=== PATIENT | female | born 1990 | race Caucasian/White ===

== ENCOUNTER 2022-12-18 18:35 | Emergency (ER) | payer MEDICAID ==
[~2022-12-18] VITALS: Ht 121.9 cm; Wt 57.0 kg
[2022-12-18 19:57] LABS: BASOPHILS % 0.5 % (0.0-2.0); EOSINOPHILS % 3.8 % (0.0-5.0); HEMATOCRIT. 35.9 % (36.0-48.0); HEMOGLOBIN. 12.2 g/dL (12.0-16.0); LYMPHOCYTES % 21.4 % (20.0-50.0); MEAN CORPUSCULAR HEMOGLOBIN 29.6 pg (28.0-32.0); MEAN CORPUSCULAR VOLUME 86.9 fL (81.0-99.0); MEAN PLATELET VOLUME 7.7 fl (7.4-10.4); MONOCYTES % 6.2 % (2.0-8.0); NEUTROPHILS % 68.1 % (40.0-76.0); PLATELET 335 x1000/uL (130-400); RED BLOOD CELL COUNT 4.13 mill/uL (4.2-5.4); RED CELL DISTRIBUTION WIDTH 14.6 % (11.6-14.6)
[2022-12-18 20:05] LABS: CHLORIDE 102 mEq/L (98-107)
[2022-12-18] MEDS ORDERED: SODIUM CHLORIDE 0.9% 1,000 ML IV ONE (22:15)
[2022-12-18] MEDS ORDERED: POTASSIUM CHLORIDE 20MEQ TABLET SR PO ONE (22:15)
[2022-12-18 22:37] LABS: CLARITY URINE CLEAR (CLEAR); COLOR URINE YELLOW (YELLOW); KETONES URINE NEGATIVE (NEGATIVE); LEUKOCYTE ESTERASE URINE NEGATIVE (NEGATIVE); NITRITE URINE NEGATIVE (NEGATIVE); OCCULT BLOOD URINE NEGATIVE (NEGATIVE); PH URINE 6.5 (4.5-8.0); PROTEIN URINE NEGATIVE (NEGATIVE); SPECIFIC GRAVITY URINE 1.016 (1.005-1.030)
[2022-12-19] VITALS: BP 116/77
== END 2022-12-19 19:19 | disposition home or self-care (01) ==
LOC: ER 18:35
DX: R07.89 Other chest pain (principal); R05.9 Cough, unspecified; E11.9 Type 2 diabetes mellitus without complications
CPT/HCPCS: 36415; 71045; 80053; 81003; 82962; 84484; 85025; 93005; 99285; J7030; Z7610

== ENCOUNTER 2022-12-25 06:00 | Inpatient (IN) | payer MEDICAID ==
[~2022-12-25] VITALS: Ht 149.9 cm; Wt 51.7 kg
[2022-12-25] MEDS ORDERED: SODIUM CHLORIDE 0.9% 1000ML BAG (SEPSIS BOLUS) IV ONE (06:15)
[2022-12-25] MEDS ORDERED: ADENOSINE 3 MG/ML 2ML VIAL IV ONE ×2 (06:15)
[2022-12-25] MEDS ORDERED: ACETAMINOPHEN 325MG TABLET PO ONE (06:30)
[2022-12-25 06:47] LABS: HEMATOCRIT. 38.6 % (36.0-48.0); HEMOGLOBIN. 13.1 g/dL (12.0-16.0); MEAN CORPUSCULAR HEMOGLOBIN 29.5 pg (28.0-32.0); MEAN CORPUSCULAR VOLUME 87.2 fL (81.0-99.0); MEAN PLATELET VOLUME 7.8 fl (7.4-10.4); PLATELET 327 x1000/uL (130-400); RED BLOOD CELL COUNT 4.43 mill/uL (4.2-5.4); RED CELL DISTRIBUTION WIDTH 14.6 % (11.6-14.6)
[2022-12-25 06:51] LABS: CHLORIDE 106 mEq/L (98-107)
[2022-12-25 07:05] LABS: PROTHROMBIN TIME 11.2 sec (9.6-11.0)
[2022-12-25] MEDS ORDERED: VANCOMYCIN 1G PREMIX 200 ML IV ONE (07:30)
[2022-12-25] MEDS ORDERED: KETOROLAC 30MG/ML VIAL IV ONE (07:30)
[2022-12-25] MEDS ORDERED: PIPERACILLIN/TAZ 3.375G PREMIX 50 ML IV ONE (07:30)
[2022-12-25 07:57] LABS: PLATELET ESTIMATE NORMAL
[2022-12-25 08:00] VITALS: BP 122/75
[2022-12-25 12:30] VITALS: BP 112/69
[2022-12-25] MEDS ORDERED: ONDANSETRON HCL 4MG/2ML INJ IV PRN (13:00)
[2022-12-25] MEDS: ACETAMINOPHEN 325MG TABLET PO PRN (13:18)
[2022-12-25] MEDS: LEVOFLOXACIN 500MG PREMIX 100 ML IV SCH (14:00)
[2022-12-25 16:00] VITALS: BP 106/72
[2022-12-25] MEDS ORDERED: CEFTRIAXONE 1GM PREMIX 50 ML IV SCH (17:45)
[2022-12-25] MEDS: MONTELUKAST SODIUM 10MG TABLET PO SCH (18:00)
[2022-12-25] MEDS: KETOROLAC 30MG/ML VIAL IV PRN (19:44)
[2022-12-25 20:00] VITALS: BP 110/75
[2022-12-25] MEDS ORDERED: CEFTRIAXONE 1,000 MG in DEXTROSE 5% WATER 50 ML IV SCH (20:00)
[2022-12-25] MEDS ORDERED: DEXTROSE 50% WATER 50ML SYRINGE IV PRN (21:15)
[2022-12-25 22:00] VITALS: BP 110/75
[2022-12-25] MEDS: LEVETIRACETAM 500MG TABLET PO SCH (22:24)
[2022-12-25] MEDS: TOPIRAMATE 100MG TABLET PO SCH (22:24)
[2022-12-25] MEDS: FAMOTIDINE 20MG TABLET PO SCH (22:24)
[2022-12-25] MEDS: DESMOPRESSIN ACETATE 0.1MG TABLET PO SCH (22:25)
[2022-12-25] MEDS: SILVER SULFADIAZINE 1% CREAM 25GM TOP SCH (22:25)
[2022-12-25 23:00] LABS: BASOPHILS % 0.5 % (0.0-2.0); EOSINOPHILS % 1.3 % (0.0-5.0); HEMATOCRIT. 35.8 % (36.0-48.0); HEMOGLOBIN. 11.9 g/dL (12.0-16.0); MEAN CORPUSCULAR HEMOGLOBIN 29.1 pg (28.0-32.0); MEAN CORPUSCULAR VOLUME 87.4 fL (81.0-99.0); MEAN PLATELET VOLUME 7.6 fl (7.4-10.4); MONOCYTES % 10.7 % (2.0-8.0); NEUTROPHILS % 70.5 % (40.0-76.0); PLATELET 314 x1000/uL (130-400); RED BLOOD CELL COUNT 4.09 mill/uL (4.2-5.4); RED CELL DISTRIBUTION WIDTH 14.8 % (11.6-14.6)
[2022-12-26] VITALS (7 sets, daily range): BP systolic 93–111; BP diastolic 57–76
[2022-12-26 06:21] LABS: BASOPHILS % 0.5 % (0.0-2.0); EOSINOPHILS % 1.9 % (0.0-5.0); HEMATOCRIT. 32.5 % (36.0-48.0); HEMOGLOBIN. 11.1 g/dL (12.0-16.0); LYMPHOCYTES % 19.6 % (20.0-50.0); MEAN CORPUSCULAR HEMOGLOBIN 30.4 pg (28.0-32.0); MEAN PLATELET VOLUME 7.7 fl (7.4-10.4); MONOCYTES % 10.8 % (2.0-8.0); NEUTROPHILS % 67.2 % (40.0-76.0); PLATELET 294 x1000/uL (130-400); RED BLOOD CELL COUNT 3.65 mill/uL (4.2-5.4); RED CELL DISTRIBUTION WIDTH 14.6 % (11.6-14.6)
[2022-12-26 06:32] LABS: CHLORIDE 119 mEq/L (98-107)
[2022-12-26] MEDS ORDERED: BLOOD SUGAR DIAGNOSTIC STRIP TEST SCH (06:40)
[2022-12-26] MEDS ORDERED: INSULIN LISPRO 100 UNITS/ML SUBCUT SCH ×2 (07:10)
[2022-12-26] MEDS: POLYETHYLENE GLYCOL 3350 (17GM) 1 DOSE PACK PO SCH (09:00)
[2022-12-26] MEDS ORDERED: SILVER SULFADIAZINE 1% CREAM 50GM TOP SCH (09:00)
[2022-12-26] MEDS ORDERED: POTASSIUM CHLORIDE 20MEQ TABLET SR PO NR (09:30)
[2022-12-26] MEDS: DESMOPRESSIN ACETATE 0.1MG TABLET PO SCH ×2 (11:03→18:43)
[2022-12-26] MEDS: FERROUS SULFATE 325MG TABLET PO SCH (11:03)
[2022-12-26] MEDS: LEVETIRACETAM 500MG TABLET PO SCH ×2 (11:04→21:37)
[2022-12-26] MEDS: TOPIRAMATE 25MG TABLET PO SCH (11:04)
[2022-12-26] MEDS: ACETAMINOPHEN 325MG TABLET PO PRN ×2 (11:04→18:43)
[2022-12-26] MEDS: SILVER SULFADIAZINE 1% CREAM 25GM TOP SCH ×2 (11:07→21:38)
[2022-12-26] MEDS: LEVOFLOXACIN 500MG PREMIX 100 ML IV SCH (15:52)
[2022-12-26] MEDS: MONTELUKAST SODIUM 10MG TABLET PO SCH (18:43)
[2022-12-26] MEDS: KETOROLAC 30MG/ML VIAL IV PRN (18:44)
[2022-12-26] MEDS: TOPIRAMATE 100MG TABLET PO SCH (21:37)
[2022-12-26] MEDS: FAMOTIDINE 20MG TABLET PO SCH (21:37)
[2022-12-27] VITALS (7 sets, daily range): BP systolic 83–111; BP diastolic 54–71
[2022-12-27 06:34] LABS: CLARITY URINE CLEAR (CLEAR); COLOR URINE YELLOW (YELLOW); KETONES URINE NEGATIVE (NEGATIVE); LEUKOCYTE ESTERASE URINE TRACE (NEGATIVE); NITRITE URINE POSITIVE (NEGATIVE); OCCULT BLOOD URINE 2+ (NEGATIVE); PH URINE 7.5 (4.5-8.0); PROTEIN URINE NEGATIVE (NEGATIVE); SPECIFIC GRAVITY URINE 1.013 (1.005-1.030)
[2022-12-27] MEDS: POLYETHYLENE GLYCOL 3350 (17GM) 1 DOSE PACK PO SCH (09:00)
[2022-12-27] MEDS: ACETAMINOPHEN 325MG TABLET PO PRN ×2 (09:37→19:11)
[2022-12-27] MEDS: LEVETIRACETAM 500MG TABLET PO SCH (09:37)
[2022-12-27] MEDS: FERROUS SULFATE 325MG TABLET PO SCH (09:39)
[2022-12-27] MEDS: DESMOPRESSIN ACETATE 0.1MG TABLET PO SCH ×2 (09:39→19:11)
[2022-12-27] MEDS: TOPIRAMATE 25MG TABLET PO SCH (09:40)
[2022-12-27] MEDS: SILVER SULFADIAZINE 1% CREAM 25GM TOP SCH (09:41)
[2022-12-27] MEDS ORDERED: LEVO-65 MT (12:10)
[2022-12-27] MEDS ORDERED: LEVOFLOXACIN 500MG TABLET PO SCH (14:00)
[2022-12-27] MEDS: KETOROLAC 30MG/ML VIAL IV PRN (14:08)
[2022-12-27] MEDS: LEVOFLOXACIN 500MG PREMIX 100 ML IV SCH (14:09)
[2022-12-27] MEDS: MONTELUKAST SODIUM 10MG TABLET PO SCH (19:11)
== END 2022-12-27 21:15 | disposition home or self-care (01) | DRG 720 ==
LOC: ER 06:00 → EDBEDREQ 10:49 → 7EST 10:51
PROVIDERS: ADMIT Internal Medicine; ATTEND Internal Medicine
PROC: 0JBR0ZZ Excision of Left Foot Subcutaneous Tissue and Fascia, Open Approach (ICD-10-PCS; 2022-12-26)
PROC: 0JBR0ZZ Excision of Left Foot Subcutaneous Tissue and Fascia, Open Approach (ICD-10-PCS; 2022-12-26)
PROC: 0JBL0ZZ Excision of Right Upper Leg Subcutaneous Tissue and Fascia, Open Approach (ICD-10-PCS; principal; 2022-12-27)
DX: A41.9 Sepsis, unspecified organism (principal); E46 Unspecified protein-calorie malnutrition; E87.1 Hypo-osmolality and hyponatremia; L89.899 Pressure ulcer of other site, unspecified stage; N12 Tubulo-interstitial nephritis, not specified as acute or chronic; S71.111A Laceration without foreign body, right thigh, initial encounter; G62.9 Polyneuropathy, unspecified; E11.9 Type 2 diabetes mellitus without complications; L98.492 Non-pressure chronic ulcer of skin of other sites with fat layer exposed; Q05.9 Spina bifida, unspecified; Z68.23 Body mass index [BMI] 23.0-23.9, adult; Z74.01 Bed confinement status; Z79.4 Long term (current) use of insulin; Z88.1 Allergy status to other antibiotic agents; X58.XXXA Exposure to other specified factors, initial encounter; Y93.89 Activity, other specified; Y92.89 Other specified places as the place of occurrence of the external cause; Y99.8 Other external cause status
CPT/HCPCS: 36415; 71045; 80048; 80053; 81003; 82040; 82962; 83036; 83605; 83880; 84134; 84145; 84484; 85025; 93005; 99285; J0153; J0696; J1885; J1956; J2405; J2543; J3370; J7030; J7060

== ENCOUNTER 2023-10-08 09:35 | Inpatient (IN) | payer MEDICAID ==
[~2023-10-08] VITALS: Ht 121.9 cm; Wt 47.6 kg
[2023-10-08] MEDS ORDERED: KETOROLAC 30MG/ML VIAL IV ONE (10:00)
[2023-10-08 10:32] LABS: BASOPHILS % 0.6 % (0.0-2.0); EOSINOPHILS % 3.5 % (0.0-5.0); HEMATOCRIT. 36.6 % (36.0-48.0); HEMOGLOBIN. 12.3 g/dL (12.0-16.0); LYMPHOCYTES % 23.5 % (20.0-50.0); MEAN CORPUSCULAR HEMOGLOBIN 28.1 pg (28.0-32.0); MEAN CORPUSCULAR HGB CONC 33.6 g/dL (31.0-37.0); MEAN CORPUSCULAR VOLUME 83.5 fL (81.0-99.0); MEAN PLATELET VOLUME 8.1 fl (7.4-10.4); MONOCYTES % 6.6 % (2.0-8.0); NEUTROPHILS % 65.8 % (40.0-76.0); PLATELET 318 x1000/uL (130-400); RED BLOOD CELL COUNT 4.38 mill/uL (4.2-5.4); RED CELL DISTRIBUTION WIDTH 16.1 % (11.6-14.6)
[2023-10-08 10:40] LABS: INR 0.9; PROTHROMBIN TIME 10.4 sec (9.6-11.0)
[2023-10-08 10:56] LABS: ALANINE AMINOTRANSFERASE 20 IU/L (10-49); ALBUMIN 4.1 g/dL (3.2-4.8); ASPARTATE AMINOTRANSFERASE 16 IU/L (<34); BILIRUBIN TOTAL 0.2 mg/dL (0.1-1.0); CALCIUM 8.7 mg/dL (8.7-10.4); CARBON DIOXIDE 20 mEq/L (21-32); CHLORIDE 111 mEq/L (98-107); CREATININE 0.2 mg/dL (0.6-1.0); GLUCOSE 105 mg/dL (70-105); POTASSIUM 3.5 mEq/L (3.5-5.1); PROTEIN TOTAL 7.5 g/dL (6.0-8.3); SODIUM 138 mEq/L (136-145); UREA NITROGEN BLOOD 11 mg/dL (9-23)
[2023-10-08 11:53] LABS: CLARITY URINE TURBID (CLEAR); COLOR URINE YELLOW (YELLOW); GLUCOSE URINE NEGATIVE (NEGATIVE); KETONES URINE NEGATIVE (NEGATIVE); LEUKOCYTE ESTERASE URINE 3+ (NEGATIVE); NITRITE URINE NEGATIVE (NEGATIVE); OCCULT BLOOD URINE 1+ (NEGATIVE); PH URINE 8.5 (4.5-8.0); PROTEIN URINE 1+ (NEGATIVE); SPECIFIC GRAVITY URINE 1.017 (1.005-1.030)
[2023-10-08] MEDS: KETOROLAC 30MG/ML VIAL IV NR (12:15)
[2023-10-08 12:25] LABS: BACTERIA URINE 1+; RBC URINE 0-2 /hpf (0-2); SQUAMOUS EPITHELIAL CELL URINE 3+ /lpf (RARE/1+); WBC URINE TNTC /hpf (0-2); YEAST URINE NONE SEEN
[2023-10-08 12:26] LABS: TRIPLE PHOSPHATE CRYSTAL URINE 1+ /lpf
[2023-10-08] MEDS: LEVOFLOXACIN 750MG PREMIX 150 ML IV ONE (12:26)
[2023-10-08] MEDS ORDERED: IPRATROPIUM/ALBUTEROL 0.5-3(2.5)MG/3ML NEB HHN PRN (15:15)
[2023-10-08] MEDS ORDERED: CLONIDINE 0.1MG TABLET PO PRN (15:15)
[2023-10-08] MEDS ORDERED: GUAIFENESIN 200MG/10ML SUGAR FREE UDC PO PRN (15:15)
[2023-10-08] MEDS ORDERED: NA PHOS,M-B/NA PHOS,DI-BA ENEMA 118ML PR PRN (15:15)
[2023-10-08] MEDS ORDERED: MAGNESIUM/ALUMINUM HYDROXIDE/SIMETHICONE 30ML UDC PO PRN (15:15)
[2023-10-08] MEDS ORDERED: ONDANSETRON HCL 4MG/2ML INJ IV PRN (15:15)
[2023-10-08] MEDS ORDERED: ACETAMINOPHEN 325MG TABLET PO PRN ×2 (15:15)
[2023-10-08] MEDS ORDERED: LEVOFLOXACIN 750MG PREMIX 150 ML IV SCH (15:30)
[2023-10-08 15:48] LABS: IRON 61 ug/dL (50-170); PHOSPHORUS 1.6 mg/dL (2.5-4.9); TOTAL IRON BINDING CAPACITY 215 ug/dl (250-425)
[2023-10-08] MEDS ORDERED: SILVER NITRATE APPLICATOR STICK TOP NR (16:00)
[2023-10-08 16:42] LABS: FERRITIN 39 ng/mL (10-291); VITAMIN B12 SERUM 473 pg/mL (211-911)
[2023-10-08 16:48] LABS: FOLIC ACID (FOLATE) SERUM > 48.00 ng/mL (>5.38)
[2023-10-08] MEDS ORDERED: KEPP250 MT (17:52)
[2023-10-08] MEDS ORDERED: POTASSIUM PHOSPHATE 30 MMOL in DEXT 5% WATER 500 ML IV NR (18:15)
[2023-10-08] MEDS: ENOXAPARIN 40MG/0.4ML SYR SUBCUT SCH (18:23)
[2023-10-08 19:30] VITALS: BP 97/60; PULSE 79; RESP 18; TEMP 97.9
[2023-10-08 20:00] VITALS: BP 101/67; PULSE 85; RESP 18; TEMP 98.1
[2023-10-08 20:14] LABS: HCG SCREEN NEGATIVE
[2023-10-08] MEDS: FAMOTIDINE 20MG TABLET PO SCH (22:01)
[2023-10-08] MEDS: LEVETIRACETAM 500MG/5ML CUP PO SCH (22:01)
[2023-10-08] MEDS: TOPIRAMATE 100MG TABLET PO SCH (22:01)
[2023-10-08] MEDS: DESMOPRESSIN ACETATE 0.1MG TABLET PO SCH (22:02)
[2023-10-08 22:41] LABS: CREATINE KINASE 28 IU/L (34-145); CREATINE KINASE MB FRACTION < 0.5 ng/mL (0.5-3.6)
[2023-10-08 22:42] LABS: TROPONIN I HIGH SENSITIVITY < 4 ng/L (3.0-34)
[2023-10-09] VITALS: BP 98/59; PULSE 65; RESP 18; TEMP 98.4
[2023-10-09 04:00] VITALS: BP 93/62; PULSE 84; RESP 18; TEMP 98.1
[2023-10-09] MEDS: SODIUM CHLORIDE 0.9% 1,000 ML IV SCH (04:43)
[2023-10-09 07:38] LABS: BASOPHILS % 0.5 % (0.0-2.0); EOSINOPHILS % 2.8 % (0.0-5.0); HEMATOCRIT. 35.4 % (36.0-48.0); HEMOGLOBIN. 11.8 g/dL (12.0-16.0); LYMPHOCYTES % 20.1 % (20.0-50.0); MEAN CORPUSCULAR HEMOGLOBIN 28.1 pg (28.0-32.0); MEAN CORPUSCULAR HGB CONC 33.4 g/dL (31.0-37.0); MEAN CORPUSCULAR VOLUME 84.1 fL (81.0-99.0); MEAN PLATELET VOLUME 8.2 fl (7.4-10.4); MONOCYTES % 6.2 % (2.0-8.0); NEUTROPHILS % 70.4 % (40.0-76.0); PLATELET 265 x1000/uL (130-400); RED CELL DISTRIBUTION WIDTH 16.2 % (11.6-14.6); WHITE BLOOD COUNT 7.2 x1000/uL (4.5-11.0)
[2023-10-09 07:58] LABS: CREATINE KINASE 20 IU/L (34-145); CREATINE KINASE MB FRACTION < 0.5 ng/mL (0.5-3.6)
[2023-10-09 08:00] VITALS: BP 95/63; PULSE 85; RESP 16; TEMP 98.4
[2023-10-09 08:01] LABS: ALANINE AMINOTRANSFERASE 14 IU/L (10-49); ALBUMIN 3.8 g/dL (3.2-4.8); ASPARTATE AMINOTRANSFERASE 14 IU/L (<34); BILIRUBIN TOTAL 0.2 mg/dL (0.1-1.0); CALCIUM 8.3 mg/dL (8.7-10.4); CARBON DIOXIDE 18 mEq/L (21-32); CHLORIDE 113 mEq/L (98-107); CHOLESTEROL 150 mg/dL (<200); CREATININE 0.2 mg/dL (0.6-1.0); GLUCOSE 102 mg/dL (70-105); HDL CHOLESTEROL 33 mg/dL (>65); LDL CHOLESTEROL 91 mg/dL (5-100); POTASSIUM 3.3 mEq/L (3.5-5.1); PROTEIN TOTAL 6.9 g/dL (6.0-8.3); SODIUM 139 mEq/L (136-145); T4 FREE 0.96 ng/dL (0.89-1.76); TRIGLYCERIDE 186 mg/dL (0-150); UREA NITROGEN BLOOD 12 mg/dL (9-23)
[2023-10-09 08:17] LABS: TROPONIN I HIGH SENSITIVITY < 4 ng/L (3.0-34)
[2023-10-09] MEDS: TOPIRAMATE 25MG TABLET PO SCH (09:31)
[2023-10-09 12:00] VITALS: BP 92/57; PULSE 83; RESP 17; TEMP 100.2
[2023-10-09] MEDS: GENTAMICIN 80MG PREMIX 100 ML IV NR (14:00)
[2023-10-09 16:00] VITALS: BP 103/61; PULSE 78; RESP 18; TEMP 98.3
[2023-10-09] MEDS: DOCUSATE SODIUM 100MG CAPSULE PO SCH (17:00)
[2023-10-09 20:00] VITALS: BP 103/62; PULSE 84; RESP 18; TEMP 98.1
[2023-10-09] MEDS: SODIUM CHLORIDE 0.9% IV SCH (22:00)
[2023-10-09] MEDS: GENTAMICIN IV SCH (22:00)
[2023-10-10] VITALS: BP 99/60; PULSE 80; RESP 18; TEMP 98.6
[2023-10-10 03:39] LABS: HEMATOCRIT 35.2 % (36.0-48.0); HEMOGLOBIN 11.6 g/dL (12.0-16.0); MEAN CORPUSCULAR HGB CONC 33.1 g/dL (31.0-37.0); MEAN CORPUSCULAR VOLUME 84.7 fL (81.0-99.0); PLATELET 317 x1000/uL (130-400); RED BLOOD CELL COUNT 4.15 mill/uL (4.2-5.4); RED CELL DISTRIBUTION WIDTH 16.5 % (11.6-14.6); WHITE BLOOD COUNT 6.9 x1000/uL (4.5-11.0)
[2023-10-10 03:40] LABS: CALCIUM 8.2 mg/dL (8.7-10.4); CARBON DIOXIDE 18 mEq/L (21-32); CHLORIDE 112 mEq/L (98-107); GLUCOSE 107 mg/dL (70-105); PHOSPHORUS 3.4 mg/dL (2.5-4.9); POTASSIUM 3.7 mEq/L (3.5-5.1); SODIUM 138 mEq/L (136-145); UREA NITROGEN BLOOD 9 mg/dL (9-23)
[2023-10-10 04:00] VITALS: BP 108/63; PULSE 85; RESP 18; TEMP 97.9
[2023-10-10 04:06] LABS: CREATININE 0.3 mg/dL (0.6-1.0)
[2023-10-10 08:00] VITALS: BP 89/55; PULSE 82; RESP 18; TEMP 98.4
[2023-10-10 12:00] VITALS: BP 88/58; PULSE 88; RESP 18; TEMP 98.2
[2023-10-10 16:00] VITALS: BP 89/62; PULSE 95; RESP 18; TEMP 98.5
[2023-10-10 20:00] VITALS: BP 100/62; PULSE 89; RESP 20; TEMP 97.7
[2023-10-10] MEDS: ATORVASTATIN CALCIUM 40MG TABLET PO SCH (21:42)
[2023-10-11] VITALS: BP 90/56; PULSE 75; RESP 20; TEMP 97.7
[2023-10-11] MEDS: VALPROIC ACID 250MG CAPSULE PO SCH (01:25)
[2023-10-11 04:00] VITALS: BP 94/61; PULSE 66; RESP 20; TEMP 96.7
[2023-10-11 07:52] LABS: HEMATOCRIT 32.2 % (36.0-48.0); HEMOGLOBIN 10.7 g/dL (12.0-16.0); MEAN CORPUSCULAR HGB CONC 33.1 g/dL (31.0-37.0); MEAN CORPUSCULAR VOLUME 84.7 fL (81.0-99.0); PLATELET 282 x1000/uL (130-400); RED BLOOD CELL COUNT 3.81 mill/uL (4.2-5.4); RED CELL DISTRIBUTION WIDTH 16.1 % (11.6-14.6); WHITE BLOOD COUNT 6.1 x1000/uL (4.5-11.0)
[2023-10-11 08:00] VITALS: BP 93/60; PULSE 77; RESP 18; TEMP 98
[2023-10-11 08:51] LABS: ALANINE AMINOTRANSFERASE 17 IU/L (10-49); ALBUMIN 3.8 g/dL (3.2-4.8); ASPARTATE AMINOTRANSFERASE 19 IU/L (<34); BILIRUBIN TOTAL 0.3 mg/dL (0.1-1.0); CALCIUM 8.3 mg/dL (8.7-10.4); CARBON DIOXIDE 16 mEq/L (21-32); CHLORIDE 113 mEq/L (98-107); GLUCOSE 91 mg/dL (70-105); PHOSPHORUS 2.4 mg/dL (2.5-4.9); POTASSIUM 3.5 mEq/L (3.5-5.1); PROTEIN TOTAL 6.8 g/dL (6.0-8.3); SODIUM 136 mEq/L (136-145); UREA NITROGEN BLOOD 9 mg/dL (9-23)
[2023-10-11 08:55] LABS: CREATININE 0.2 mg/dL (0.6-1.0)
[2023-10-11 12:00] VITALS: BP 98/53; PULSE 63; RESP 17; TEMP 98.7
[2023-10-11] MEDS: LACTULOSE 20G/30ML UDC PO SCH (14:02)
[2023-10-11] MEDS: POTASSIUM PHOSPHATE 20 MMOL in DEXT 5% WATER 243.3333 ML IV SCH (14:05)
[2023-10-11 14:22] LABS: POTASSIUM URINE RANDOM 13.3 mEq/L
[2023-10-11 16:00] VITALS: BP 135/80; PULSE 76; RESP 19; TEMP 97.1
[2023-10-11] MEDS: DOCUSATE SODIUM 100MG CAPSULE PO PRN (16:45)
[2023-10-11 20:00] VITALS: BP 99/59; PULSE 91; RESP 20; TEMP 97.7
[2023-10-12] VITALS: BP 90/56; PULSE 82; RESP 20; TEMP 96.5
[2023-10-12 04:00] VITALS: BP 90/51; PULSE 84; RESP 20; TEMP 96.5
[2023-10-12 08:00] VITALS: BP 95/52; PULSE 77; RESP 20; TEMP 97.9
[2023-10-12 09:31] LABS: CALCIUM 8.3 mg/dL (8.7-10.4); CARBON DIOXIDE 15 mEq/L (21-32); CHLORIDE 111 mEq/L (98-107); CREATININE 0.2 mg/dL (0.6-1.0); GLUCOSE 80 mg/dL (70-105); POTASSIUM 3.8 mEq/L (3.5-5.1); SODIUM 140 mEq/L (136-145); UREA NITROGEN BLOOD 5 mg/dL (9-23)
[2023-10-12 09:48] LABS: GENTAMICIN RANDOM < 0.5 ug/mL
[2023-10-12] MEDS ORDERED: VALP250C3 PO (11:14)
[2023-10-12] MEDS ORDERED: FAMO20TA8 PO (11:14)
[2023-10-12] MEDS ORDERED: LIP40 PO (11:14)
[2023-10-12] MEDS ORDERED: DESM0.1T PO (11:14)
[2023-10-12] MEDS ORDERED: KEPPSOL PO (11:14)
[2023-10-12 12:16] VITALS: BP 101/69; PULSE 100; TEMP 98.1; O2SAT 97
[2023-10-13] MEDS ORDERED: VITA1CAP MT (18:44)
[2023-10-13] MEDS ORDERED: OMEP20CA14 PO (18:44)
[2023-10-13] MEDS ORDERED: POTA-205 MT (18:44)
[2023-10-13] MEDS ORDERED: FERR-63 (18:44)
[2023-10-13] MEDS ORDERED: ASCO500C18 PO (18:44)
[2023-10-13] MEDS ORDERED: MONT-39 PO (18:44)
[2023-10-13] MEDS ORDERED: TOPI200T15 PO (18:44)
[2023-10-15] MEDS ORDERED: KEPPSOL PO (10:23)
== END 2023-10-12 14:50 | DRG 249 ==
LOC: ER 09:35 → 6EST 12:17 → EDBEDREQ 12:20 → EDBEDREQTM 12:20
PROVIDERS: ADMIT Internal Medicine; ATTEND Internal Medicine
DX: K52.89 Other specified noninfective gastroenteritis and colitis (principal); E23.2 Diabetes insipidus; L89.214 Pressure ulcer of right hip, stage 4; G82.20 Paraplegia, unspecified; L89.893 Pressure ulcer of other site, stage 3; N39.0 Urinary tract infection, site not specified; Q05.4 Unspecified spina bifida with hydrocephalus; G40.909 Epilepsy, unspecified, not intractable, without status epilepticus; L97.529 Non-pressure chronic ulcer of other part of left foot with unspecified severity; K21.9 Gastro-esophageal reflux disease without esophagitis; K76.0 Fatty (change of) liver, not elsewhere classified; L89.899 Pressure ulcer of other site, unspecified stage; K59.09 Other constipation; L89.890 Pressure ulcer of other site, unstageable; R32 Unspecified urinary incontinence; J45.909 Unspecified asthma, uncomplicated; N32.89 Other specified disorders of bladder; N20.0 Calculus of kidney; Z98.2 Presence of cerebrospinal fluid drainage device; Z88.1 Allergy status to other antibiotic agents; Z79.899 Other long term (current) drug therapy; Z79.4 Long term (current) use of insulin
CPT/HCPCS: 36415; 74176; 76705; 80048; 80053; 80061; 80170; 81003; 82436; 82550; 82553; 82607; 82728; 82746; 83540; 83550; 83605; 83735; 83930; 84100; 84133; 84145; 84300; 84439; 84443; 84484; 84703; 85025; 85027; 87077; 87186; 93005; 93970; 97162; 99285; A6261; C1893; J1580; J1650; J1885; J1956; J3490; J7060

== ENCOUNTER 2023-12-20 00:59 | Emergency (ER) | payer MEDICAID ==
[~2023-12-20] VITALS: Ht 142.2 cm; Wt 54.0 kg
[~2023-12-20 00:59] MED LIST: ASCO500C18 PO; DESM0.1T PO; FAMO20TA8 PO; FERR-63; KEPPSOL PO; LIP40 PO; MONT-39 PO; OMEP20CA14 PO; POTA-205 MT; TOPI200T15 PO; VITA1CAP MT
[2023-12-20 01:01] VITALS: O2SAT 98
[2023-12-20] MEDS: SODIUM CHLORIDE 0.9% 1,000 ML IV ONE (01:15)
[2023-12-20 01:32] LABS: BASOPHILS % 0.3 % (0.0-2.0); EOSINOPHILS % 1.7 % (0.0-5.0); HEMATOCRIT. 35.9 % (36.0-48.0); HEMOGLOBIN. 12.2 g/dL (12.0-16.0); LYMPHOCYTES % 12.5 % (20.0-50.0); MEAN CORPUSCULAR HEMOGLOBIN 27.3 pg (28.0-32.0); MEAN CORPUSCULAR HGB CONC 33.9 g/dL (31.0-37.0); MEAN CORPUSCULAR VOLUME 80.7 fL (81.0-99.0); MEAN PLATELET VOLUME 7.9 fl (7.4-10.4); MONOCYTES % 4.6 % (2.0-8.0); NEUTROPHILS % 80.9 % (40.0-76.0); PLATELET 344 x1000/uL (130-400); RED BLOOD CELL COUNT 4.45 mill/uL (4.2-5.4); RED CELL DISTRIBUTION WIDTH 16.1 % (11.6-14.6); WHITE BLOOD COUNT 9.9 x1000/uL (4.5-11.0)
[2023-12-20 01:38] LABS: CHLORIDE 111 mEq/L (98-107); POTASSIUM 3.3 mEq/L (3.5-5.1); SODIUM 140 mEq/L (136-145)
[2023-12-20 01:39] LABS: CALCIUM 9.2 mg/dL (8.7-10.4); CARBON DIOXIDE 18 mEq/L (21-32)
[2023-12-20 01:44] LABS: GLUCOSE 173 mg/dL (70-105); UREA NITROGEN BLOOD 13 mg/dL (9-23)
[2023-12-20 01:46] LABS: ALANINE AMINOTRANSFERASE 23 IU/L (10-49); ASPARTATE AMINOTRANSFERASE 22 IU/L (<34); BILIRUBIN TOTAL 0.2 mg/dL (0.1-1.0); PROTEIN TOTAL 7.4 g/dL (6.0-8.3)
[2023-12-20 01:52] LABS: HCG SCREEN NEGATIVE
[2023-12-20 01:56] LABS: CREATININE 0.4 mg/dL (0.6-1.0)
[2023-12-20] MEDS: ONDANSETRON HCL 4MG/2ML INJ IV STA (02:01)
[2023-12-20] MEDS: KETOROLAC 30MG/ML VIAL IV STA (02:01)
[2023-12-20] MEDS: TAMSULOSIN HCL 0.4MG SR CAPSULE PO SCH (04:30)
[2023-12-20] MEDS: POTASSIUM CHLORIDE 20MEQ/PACKET PO NR (04:30)
[2023-12-20] MEDS ORDERED: IBUP-2029 MT (04:45)
[2023-12-20] MEDS ORDERED: SULF1TAB48 MT (04:45)
[2023-12-20] MEDS ORDERED: TAMS-11 MT (04:45)
[2023-12-20] MEDS ORDERED: ONDA4TAB50 MT (04:45)
[2023-12-20] MEDS: IOHEXOL-300 100 ML BOTTLE ONE (06:46)
[2023-12-20 10:04] VITALS: BP 92/59; PULSE 91; RESP 18; TEMP 98.4
== END 2023-12-20 10:00 ==
LOC: ER 00:59
DX: N20.1 Calculus of ureter (principal); E11.9 Type 2 diabetes mellitus without complications; Z00.00 Encounter for general adult medical examination without abnormal findings; Z91.040 Latex allergy status; Z88.1 Allergy status to other antibiotic agents; Z88.5 Allergy status to narcotic agent; Z79.899 Other long term (current) drug therapy; Z98.890 Other specified postprocedural states; Z86.59 Personal history of other mental and behavioral disorders
CPT/HCPCS: 80053; 84703; 83605; 83690; 85025; 36415; 74177; 96361; 96374; 96375; 99285; Q9967; J1885; J2405; J7030; Z7610

== ENCOUNTER 2024-06-02 11:55 | Inpatient (IN) | payer MEDICAID ==
[~2024-06-02] VITALS: Ht 124.5 cm; Wt 57.2 kg
[~2024-06-02 11:55] MED LIST changes: +CICL6.6S22 TP; -DESM0.1T PO; +DESM0.2T31 MT; +DOCU-422 MT; -FAMO20TA8 PO; -FERR-63; +FERR-63 PO; +HYDR10TA34 MT; -KEPPSOL PO; +LEVE10006 MT; -LIP40 PO; +MOM MT; +MULT-1146 MT; +POLY17PO3 PO; -TOPI200T15 PO
[2024-06-02] MEDS: SODIUM CHLORIDE 0.9% (SEPSIS BOLUS) IV ONE (12:57)
[2024-06-02] MEDS: CEFTRIAXONE 1GM/50ML 50 ML IV ONE (12:57)
[2024-06-02 13:16] LABS: BASOPHILS % 0.6 % (0.0-2.0); EOSINOPHILS % 2.5 % (0.0-5.0); HEMATOCRIT. 36.7 % (36.0-48.0); HEMOGLOBIN. 12.2 g/dL (12.0-16.0); LYMPHOCYTES % 25.8 % (20.0-50.0); MEAN CORPUSCULAR HEMOGLOBIN 27.7 pg (28.0-32.0); MEAN CORPUSCULAR HGB CONC 33.2 g/dL (31.0-37.0); MEAN CORPUSCULAR VOLUME 83.4 fL (81.0-99.0); MEAN PLATELET VOLUME 8.3 fl (7.4-10.4); MONOCYTES % 6.8 % (2.0-8.0); NEUTROPHILS % 64.3 % (40.0-76.0); PLATELET 284 x1000/uL (130-400); RED CELL DISTRIBUTION WIDTH 17.4 % (11.6-14.6); WHITE BLOOD COUNT 7.9 x1000/uL (4.5-11.0)
[2024-06-02 13:19] LABS: CHLORIDE 111 mEq/L (98-107); POTASSIUM 3.5 mEq/L (3.5-5.1); SODIUM 137 mEq/L (136-145)
[2024-06-02 13:20] LABS: CARBON DIOXIDE 18 mEq/L (21-32)
[2024-06-02 13:21] LABS: CALCIUM 9.1 mg/dL (8.7-10.4)
[2024-06-02 13:24] LABS: PROTHROMBIN TIME 11.5 sec (9.6-11.0)
[2024-06-02 13:25] LABS: GLUCOSE 101 mg/dL (70-105)
[2024-06-02 13:26] LABS: UREA NITROGEN BLOOD 11 mg/dL (9-23)
[2024-06-02] MEDS: LEVOFLOXACIN 500MG PREMIX 100 ML IV ONE (13:26)
[2024-06-02 13:27] LABS: ALANINE AMINOTRANSFERASE 11 IU/L (10-49); ALBUMIN 3.9 g/dL (3.2-4.8); ASPARTATE AMINOTRANSFERASE 14 IU/L (<34); CREATININE 0.2 mg/dL (0.6-1.0); TROPONIN I HIGH SENSITIVITY < 4 ng/L (3.0-34)
[2024-06-02 13:28] LABS: BILIRUBIN DIRECT 0.1 mg/dL (<=3.0); BILIRUBIN TOTAL 0.3 mg/dL (0.1-1.0); PROTEIN TOTAL 7.3 g/dL (6.0-8.3)
[2024-06-02] MEDS ORDERED: IPRATROPIUM/ALBUTEROL 0.5-3(2.5)MG/3ML NEB HHN PRN (14:30)
[2024-06-02] MEDS ORDERED: DEXTROSE 50% WATER 50ML SYRINGE IV PRN (16:30)
[2024-06-02] MEDS: BLOOD SUGAR DIAGNOSTIC STRIP TEST SCH (17:49)
[2024-06-02] MEDS: INSULIN LISPRO 100 UNITS/ML SUBCUT SCH (17:50)
[2024-06-02] MEDS ORDERED: LEVETIRACETAM MT SCH (21:00)
[2024-06-02] MEDS: LEVETIRACETAM 500MG TABLET PO SCH (22:28)
[2024-06-02] MEDS: MONTELUKAST SODIUM 10MG TABLET PO SCH (22:29)
[2024-06-02] MEDS: POTASSIUM CHLORIDE 20MEQ TABLET SR PO SCH (22:29)
[2024-06-02] MEDS: HYDROXYZINE 10MG TABLET PO SCH (22:29)
[2024-06-02] MEDS: FAMOTIDINE 20MG/2ML VIAL IV SCH (22:30)
[2024-06-03] VITALS: BP 95/61; PULSE 84; RESP 18; TEMP 36.16956; O2SAT 98
[2024-06-03 04:35] VITALS: BP 106/73; PULSE 94; RESP 18; TEMP 36.50292; O2SAT 99
[2024-06-03] MEDS ORDERED: ENOXAPARIN 40MG/0.4ML SYR SUBCUT SCH (09:00)
[2024-06-03] MEDS ORDERED: LEVOFLOXACIN 500MG PREMIX 100 ML IV SCH (09:15)
[2024-06-03] MEDS ORDERED: DESMOPRESSIN ACETATE MT SCH (09:15)
[2024-06-03 09:27] VITALS: BP 112/78; PULSE 82; RESP 18; TEMP 36.50292; O2SAT 99
[2024-06-03 09:33] VITALS: BP 112/78; PULSE 82; RESP 18; TEMP 36.5292
[2024-06-03] MEDS: POLYETHYLENE GLYCOL 3350 (17GM) 1 DOSE PACK PO SCH (09:59)
[2024-06-03] MEDS: FERROUS SULFATE 325MG TABLET PO SCH (10:01)
[2024-06-03] MEDS: MAGNESIUM/ALUMINUM HYDROXIDE/SIMETHICONE 30ML UDC PO PRN (10:01)
[2024-06-03] MEDS: MAGNESIUM HYDROXIDE 400MG/5ML 30ML UDC PO SCH (10:06)
[2024-06-03] MEDS: DESMOPRESSIN ACETATE 0.1MG TABLET PO SCH (10:08)
[2024-06-03] MEDS: LEVOFLOXACIN 750MG PREMIX 150 ML IV SCH (10:13)
[2024-06-03] MEDS ORDERED: SODIUM BICARBONATE 4% 2.4MEQ/5ML VIAL IV ONE (12:06)
[2024-06-03 13:49] LABS: CLARITY URINE CLEAR (CLEAR); COLOR URINE YELLOW (YELLOW); GLUCOSE URINE NEGATIVE (NEGATIVE); KETONES URINE 1+ (NEGATIVE); LEUKOCYTE ESTERASE URINE 3+ (NEGATIVE); NITRITE URINE NEGATIVE (NEGATIVE); OCCULT BLOOD URINE 2+ (NEGATIVE); PROTEIN URINE 1+ (NEGATIVE); SPECIFIC GRAVITY URINE 1.003 (1.005-1.030); UROBILINOGEN URINE 0.2 E.U./dL (0.2-1.0)
[2024-06-03 14:06] LABS: WBC URINE 15-25 /hpf (0-2)
[2024-06-03 14:07] LABS: BACTERIA URINE TRACE; SQUAMOUS EPITHELIAL CELL URINE NONE SEEN /lpf (RARE/1+); YEAST URINE NONE SEEN
[2024-06-03 15:43] LABS: PROTEIN BODY FLUID < 2.0 gm/dL
[2024-06-03 16:00] VITALS: BP 104/70; PULSE 92; RESP 18; TEMP 35.89176; O2SAT 100
[2024-06-03 19:33] LABS: BODY FLUID MONOCYTES 37 %; BODY FLUID RBC 427 /cu mm (0-2000); BODY FLUID WBC 18 /cu mm (0-200)
[2024-06-03 20:00] VITALS: BP 108/72; PULSE 88; RESP 20; TEMP 36.55848; O2SAT 98
[2024-06-04] VITALS: BP 118/80; PULSE 80; RESP 20; TEMP 36.6696; O2SAT 98
[2024-06-04 04:00] VITALS: BP 101/60; PULSE 87; RESP 18; TEMP 37.00296; O2SAT 98
[2024-06-04 08:00] VITALS: BP 100/63; PULSE 73; RESP 20; TEMP 36.55848; O2SAT 99
[2024-06-04] MEDS: DIPHENHYDRAMINE 25MG CAPSULE PO PRN (10:34)
[2024-06-04 12:00] VITALS: BP 111/66; PULSE 120; RESP 18; TEMP 36.61404; O2SAT 98
[2024-06-04] MEDS ORDERED: PNEUMOCOCCAL 20-VAL CONJ-DIP CRM 0.5ML IM ONE (14:30)
[2024-06-04] MEDS ORDERED: INFLUENZA VACCINE 05/PF 0.5 ML SYRINGE IM ONE (14:30)
[2024-06-04 16:00] VITALS: BP 101/60; PULSE 87; RESP 18; TEMP 37.00296; O2SAT 99
[2024-06-04 20:00] VITALS: BP 100/67; PULSE 94; RESP 19; TEMP 36.22512; O2SAT 98
[2024-06-05] VITALS: BP 103/70; PULSE 85; RESP 20; TEMP 36.28068; O2SAT 99
[2024-06-05 04:00] VITALS: BP 97/64; PULSE 80; RESP 20; TEMP 36.28068; O2SAT 98
[2024-06-05 07:34] LABS: ALBUMIN 4.1 g/dL (3.2-4.8); PREALBUMIN 8.4 mg/dl (10.0-40.0)
[2024-06-05 08:00] VITALS: BP 93/61; PULSE 73; RESP 18; TEMP 36.61404; O2SAT 99
[2024-06-05 12:00] VITALS: BP 92/67; PULSE 88; RESP 18; TEMP 36.16956; O2SAT 99
[2024-06-05 16:00] VITALS: BP 112/72; PULSE 115; RESP 20; TEMP 36.72516; O2SAT 98
[2024-06-05 20:00] VITALS: BP 97/68; PULSE 108; RESP 20; TEMP 36.3918; O2SAT 97
[2024-06-06] VITALS: BP 102/67; PULSE 93; RESP 20; TEMP 36.22512; O2SAT 97
[2024-06-06 04:00] VITALS: BP 99/64; PULSE 85; RESP 20; TEMP 36.6696; O2SAT 97
[2024-06-06] MEDS ORDERED: LIDOCAINE HCL 4% (40MG/ML) SOLN 50ML TOP NR (06:00)
[2024-06-06 08:00] VITALS: BP 92/62; PULSE 72; RESP 18; TEMP 36.9474; O2SAT 98
[2024-06-06] MEDS: LINEZOLID 600MG TABLET PO SCH (08:31)
[2024-06-06] MEDS ORDERED: LEVOFLOXACIN 250MG TABLET PO SCH (11:00)
[2024-06-06 12:00] VITALS: BP 97/62; PULSE 92; RESP 18; TEMP 36.28068; O2SAT 97
[2024-06-06 16:00] VITALS: BP 113/82; PULSE 89; RESP 20; TEMP 36.50292; O2SAT 97
[2024-06-06 20:00] VITALS: BP 100/68; PULSE 105; RESP 18; TEMP 36.78072; O2SAT 97
[2024-06-07] VITALS: BP 97/60; PULSE 100; RESP 18; TEMP 36.89184; O2SAT 96
[2024-06-07 04:00] VITALS: BP 96/53; PULSE 75; RESP 19; TEMP 36.22512; O2SAT 97
[2024-06-07 08:00] VITALS: BP 93/60; PULSE 83; RESP 20; TEMP 36.6696; O2SAT 98
[2024-06-07] MEDS: ACETAMINOPHEN 325MG TABLET PO PRN (11:10)
[2024-06-07 12:00] VITALS: BP 96/56; PULSE 72; RESP 18; TEMP 36.61404; O2SAT 97
[2024-06-07 16:00] VITALS: BP 93/61; PULSE 79; RESP 18; TEMP 36.44736; O2SAT 97
[2024-06-07 20:00] VITALS: BP 99/66; PULSE 87; RESP 18; TEMP 35.89176; O2SAT 97
[2024-06-08] VITALS: BP 102/67; PULSE 81; RESP 18; TEMP 36.00288; O2SAT 98
[2024-06-08 04:00] VITALS: BP 95/71; PULSE 90; RESP 19; TEMP 35.89176; O2SAT 99
[2024-06-08 08:00] VITALS: BP 99/62; PULSE 79; RESP 18; TEMP 36.55848; O2SAT 97
[2024-06-08] MEDS: ENOXAPARIN 40MG/0.4ML SYR SUBCUT SCH (11:37)
[2024-06-08 12:00] VITALS: BP 99/62; PULSE 18; RESP 18; TEMP 36.61404; O2SAT 96
[2024-06-08 17:10] VITALS: BP 100/60; PULSE 99; RESP 20; TEMP 36.55848; O2SAT 98
[2024-06-08 20:00] VITALS: BP 102/67; PULSE 104; RESP 18; TEMP 36.50292; O2SAT 95
[2024-06-09] VITALS: BP 99/68; PULSE 89; RESP 18; TEMP 36.16956; O2SAT 95
[2024-06-09 07:18] LABS: CHLORIDE 106 mEq/L (98-107); SODIUM 138 mEq/L (136-145)
[2024-06-09 07:19] LABS: CARBON DIOXIDE 25 mEq/L (21-32)
[2024-06-09 07:20] LABS: CALCIUM 9.3 mg/dL (8.7-10.4)
[2024-06-09 07:24] LABS: GLUCOSE 93 mg/dL (70-105); UREA NITROGEN BLOOD 7 mg/dL (9-23)
[2024-06-09 07:29] LABS: CREATININE 0.3 mg/dL (0.6-1.0)
[2024-06-09 07:33] LABS: HEMATOCRIT 32.9 % (36.0-48.0); MEAN CORPUSCULAR HEMOGLOBIN 27.5 pg (28.0-32.0); MEAN CORPUSCULAR HGB CONC 33.4 g/dL (31.0-37.0); MEAN CORPUSCULAR VOLUME 82.2 fL (81.0-99.0); PLATELET 290 x1000/uL (130-400); RED CELL DISTRIBUTION WIDTH 16.6 % (11.6-14.6)
[2024-06-09 08:08] VITALS: BP 98/63; PULSE 84; RESP 18; TEMP 36.50292; O2SAT 100
[2024-06-09 12:04] VITALS: BP 103/67; PULSE 84; RESP 16; TEMP 36.78072; O2SAT 99
[2024-06-09 16:00] VITALS: BP 97/65; PULSE 99; RESP 65; TEMP 36.114; O2SAT 97
[2024-06-09 20:00] VITALS: BP 95/62; PULSE 101; RESP 18; TEMP 36.22512; O2SAT 99
[2024-06-10] VITALS (7 sets, daily range): BP systolic 95–102; BP diastolic 58–67; PULSE 81–96; RESP 16–20; TEMP 35.0028–36.50292; O2SAT 95–100
[2024-06-10 02:17] LABS: CLARITY URINE CLEAR (CLEAR); COLOR URINE YELLOW (YELLOW); GLUCOSE URINE NEGATIVE (NEGATIVE); KETONES URINE 2+ (NEGATIVE); LEUKOCYTE ESTERASE URINE 3+ (NEGATIVE); NITRITE URINE NEGATIVE (NEGATIVE); OCCULT BLOOD URINE 2+ (NEGATIVE); PROTEIN URINE 2+ (NEGATIVE); SPECIFIC GRAVITY URINE 1.011 (1.005-1.030); UROBILINOGEN URINE 0.2 E.U./dL (0.2-1.0)
[2024-06-10 05:03] LABS: BACTERIA URINE NONE SEEN; SQUAMOUS EPITHELIAL CELL URINE NONE SEEN /lpf (RARE/1+)
[2024-06-10] MEDS: ASCORBIC ACID 500 MG TABLET PO SCH (08:24)
[2024-06-10] MEDS: MULTIVITAMINS,THER W-MINERALS TABLET PO SCH (09:00)
[2024-06-11] VITALS: BP 99/68; PULSE 91; RESP 17; TEMP 36.22512; O2SAT 97
[2024-06-11 04:00] VITALS: BP 98/68; PULSE 93; RESP 17; TEMP 36.50292; O2SAT 98
[2024-06-11 07:58] VITALS: BP 97/67; PULSE 94; RESP 16; TEMP 36.114; O2SAT 99
[2024-06-11 12:05] VITALS: BP 102/68; PULSE 93; RESP 18; TEMP 36.114; O2SAT 99
[2024-06-11 16:00] VITALS: BP 101/66; PULSE 93; RESP 20; TEMP 36.6696; O2SAT 100
[2024-06-11 20:00] VITALS: BP 100/68; PULSE 99; RESP 18; TEMP 36.9474; O2SAT 100
[2024-06-12] VITALS: BP 97/70; PULSE 79; RESP 18; TEMP 36.114; O2SAT 96
[2024-06-12 04:00] VITALS: BP 103/67; PULSE 74; RESP 18; TEMP 36.83628; O2SAT 96
[2024-06-12 08:00] VITALS: BP 106/72; PULSE 90; RESP 20; TEMP 36.22512; O2SAT 95
[2024-06-12 12:00] VITALS: BP 108/75; PULSE 90; RESP 18; TEMP 36.114; O2SAT 100
[2024-06-12 16:00] VITALS: BP_SYST 100; BP_SYST 165; BP_DIAS 62; BP_DIAS 71; PULSE 114; RESP 18; TEMP 36.00288; TEMP 36.44736; O2SAT 100
[2024-06-12 20:00] VITALS: BP 100/63; PULSE 94; RESP 20; TEMP 36.78072; O2SAT 97
[2024-06-13] VITALS: BP 93/61; PULSE 83; RESP 19; TEMP 36.61404; O2SAT 98
[2024-06-13 08:00] VITALS: BP 90/55; PULSE 80; RESP 18; TEMP 35.50284; O2SAT 96
[2024-06-13 12:00] VITALS: BP 95/60; PULSE 86; RESP 17; TEMP 37.00296; O2SAT 98
[2024-06-13 16:00] VITALS: BP 94/61; PULSE 86; RESP 18; TEMP 36.78072; O2SAT 98
[2024-06-13 20:00] VITALS: BP 97/59; PULSE 105; RESP 18; TEMP 36.50292; O2SAT 96
[2024-06-14] VITALS: BP 95/60; PULSE 82; RESP 18; TEMP 36.05844; O2SAT 95
[2024-06-14 04:00] VITALS: BP 95/60; PULSE 82; RESP 18; TEMP 36.05844; O2SAT 95
[2024-06-14 08:00] VITALS: BP 91/61; PULSE 83; RESP 18; TEMP 36.50292; O2SAT 96
[2024-06-14 12:00] VITALS: BP 105/75; PULSE 96; RESP 16; TEMP 37.00296; O2SAT 100
[2024-06-14 16:00] VITALS: BP 105/69; PULSE 81; RESP 16; TEMP 36.78072; O2SAT 96
[2024-06-14 20:00] VITALS: BP 106/67; PULSE 114; RESP 18; TEMP 36.28068; O2SAT 95
[2024-06-15] VITALS: BP 102/66; PULSE 99; RESP 18; TEMP 36.3918; O2SAT 95
[2024-06-15 04:00] VITALS: BP 93/55; PULSE 79; RESP 16; TEMP 36.28068; O2SAT 97
[2024-06-15 08:00] VITALS: BP 100/63; PULSE 86; RESP 18; TEMP 36.33624; O2SAT 98
[2024-06-15 12:00] VITALS: BP 100/62; PULSE 99; RESP 18; TEMP 36.55848; O2SAT 97
[2024-06-15 16:00] VITALS: BP 104/65; PULSE 104; RESP 18; TEMP 36.55848; O2SAT 98
[2024-06-15 23:37] VITALS: BP 99/56; PULSE 103; RESP 18; TEMP 37.11408; O2SAT 92
[2024-06-16 08:00] VITALS: BP 127/102; PULSE 94; RESP 20; TEMP 36.05844; O2SAT 98
[2024-06-16 12:00] VITALS: BP 98/59; PULSE 108; RESP 20; TEMP 36.16956; O2SAT 99
[2024-06-16 16:00] VITALS: BP 92/62; PULSE 100; RESP 20; TEMP 36.16956; O2SAT 100
[2024-06-16 20:00] VITALS: BP 103/67; PULSE 71; RESP 17; TEMP 36.114; O2SAT 98
[2024-06-17] VITALS: BP 90/60; PULSE 89; RESP 18; TEMP 36.114; O2SAT 97
[2024-06-17 04:00] VITALS: BP 91/58; PULSE 89; RESP 18; TEMP 36.3918; O2SAT 7
[2024-06-17 08:00] VITALS: BP 100/59; PULSE 86; RESP 19; TEMP 36.16956; O2SAT 99
[2024-06-17 08:24] LABS: CHLORIDE 104 mEq/L (98-107); POTASSIUM 3.5 mEq/L (3.5-5.1); SODIUM 136 mEq/L (136-145)
[2024-06-17 08:25] LABS: CARBON DIOXIDE 26 mEq/L (21-32)
[2024-06-17 08:26] LABS: HEMATOCRIT 31.8 % (36.0-48.0); HEMOGLOBIN 10.3 g/dL (12.0-16.0); MEAN CORPUSCULAR HEMOGLOBIN 26.6 pg (28.0-32.0); MEAN CORPUSCULAR HGB CONC 32.5 g/dL (31.0-37.0); MEAN CORPUSCULAR VOLUME 81.9 fL (81.0-99.0); PLATELET 301 x1000/uL (130-400); RED BLOOD CELL COUNT 3.88 mill/uL (4.2-5.4); RED CELL DISTRIBUTION WIDTH 16.2 % (11.6-14.6); WHITE BLOOD COUNT 7.8 x1000/uL (4.5-11.0)
[2024-06-17 08:30] LABS: GLUCOSE 85 mg/dL (70-105); UREA NITROGEN BLOOD 8 mg/dL (9-23)
[2024-06-17 08:32] LABS: LACTATE DEHYDROGENASE 127 IU/L (120-246)
[2024-06-17 08:40] LABS: CREATININE 0.2 mg/dL (0.6-1.0)
[2024-06-17 09:36] LABS: INR 1.1; PROTHROMBIN TIME 11.8 sec (9.6-11.0)
[2024-06-17] MEDS ORDERED: SODIUM BICARBONATE 4% 2.4MEQ/5ML VIAL IV ONE (09:42)
[2024-06-17] MEDS ORDERED: BENZONATATE 100MG CAPSULE PO PRN (14:00)
[2024-06-17 16:00] VITALS: BP 95/54; PULSE 98; RESP 19; TEMP 36.28068; O2SAT 99
[2024-06-17 17:31] LABS: BODY FLUID RBC 490 /cu mm (0-2000); BODY FLUID WBC 0 /cu mm (0-200)
[2024-06-17 17:32] LABS: BODY FLUID MONOCYTES 0 %
[2024-06-17 20:00] VITALS: BP 94/62; PULSE 87; RESP 18; TEMP 36.6696; O2SAT 96
[2024-06-17] MEDS: GUAIFENESIN-DM 200MG-20MG/10ML UDC PO PRN (21:33)
[2024-06-18] VITALS (7 sets, daily range): BP systolic 96–105; BP diastolic 56–72; PULSE 86–111; RESP 18–20; TEMP 36.3918–37.11408; O2SAT 95–99
[2024-06-18 17:01] LABS: PROTEIN BODY FLUID < 2.0 gm/dL
[2024-06-19 04:00] VITALS: BP 98/61; PULSE 96; RESP 20; TEMP 35.8362; O2SAT 98
[2024-06-19 08:00] VITALS: BP 105/67; PULSE 72; RESP 16; TEMP 36.6696; O2SAT 97
[2024-06-19] MEDS: MENTHOL/LANOLIN/CALAMINE/ZN OX OINT 71GM TOP SCH (11:54)
[2024-06-19 12:00] VITALS: BP 104/69; RESP 18; TEMP 36.61404; O2SAT 97
[2024-06-19 16:00] VITALS: BP 100/61; PULSE 97; RESP 18; TEMP 36.72516; O2SAT 99
[2024-06-19 20:00] VITALS: BP 93/60; PULSE 88; RESP 18; TEMP 37.11408; O2SAT 95
[2024-06-20] VITALS: BP 90/51; PULSE 73; RESP 18; TEMP 36.83628; O2SAT 96
[2024-06-20 04:00] VITALS: BP 92/54; PULSE 86; RESP 18; TEMP 37.28076; O2SAT 98
[2024-06-20 08:00] VITALS: BP 101/61; PULSE 74; RESP 19; TEMP 36.33624; O2SAT 97
[2024-06-20 12:00] VITALS: BP 98/60; PULSE 94; RESP 20; TEMP 36.28068; O2SAT 99
[2024-06-20 16:00] VITALS: BP 101/64; PULSE 95; RESP 20; TEMP 36.28068; O2SAT 100
[2024-06-20 20:00] VITALS: BP 96/67; PULSE 101; RESP 18; TEMP 36.16956; O2SAT 95
[2024-06-21] VITALS: BP 100/62; PULSE 87; RESP 18; TEMP 36.114; O2SAT 97
[2024-06-21 08:00] VITALS: BP 100/63; PULSE 93; RESP 20; TEMP 36.114; O2SAT 98
[2024-06-21 12:00] VITALS: BP 96/50; PULSE 87; RESP 18; TEMP 36.6696; O2SAT 100
[2024-06-21 20:00] VITALS: BP 101/66; PULSE 103; RESP 18; TEMP 36.61404; O2SAT 98
[2024-06-21] MEDS ORDERED: TRAMADOL 50MG TABLET PO PRN (20:30)
[2024-06-22] VITALS: BP 98/62; RESP 18; TEMP 36.61404; O2SAT 97
[2024-06-22 04:00] VITALS: BP 98/65; PULSE 101; RESP 18; TEMP 36.61404; O2SAT 95
[2024-06-22 08:00] VITALS: BP 98/57; PULSE 98; RESP 18; TEMP 36.22512; O2SAT 100
[2024-06-22 12:00] VITALS: BP 95/65; PULSE 103; RESP 18; TEMP 36.28068; O2SAT 98
[2024-06-22 16:00] VITALS: BP_SYST 109; BP_SYST 99; BP_DIAS 63; BP_DIAS 74; PULSE 74; RESP 18; TEMP 36.50292; O2SAT 100
[2024-06-22 20:00] VITALS: BP 94/63; PULSE 105; RESP 18; TEMP 35.89176; O2SAT 97
[2024-06-23] VITALS: BP 116/69; PULSE 103; RESP 17; TEMP 36.78072; O2SAT 98
[2024-06-23 04:00] VITALS: BP 93/60; PULSE 65; RESP 18; TEMP 37.00296; O2SAT 95
[2024-06-23 08:00] VITALS: BP 99/65; PULSE 98; RESP 19; TEMP 36.33624; O2SAT 98
[2024-06-23 12:00] VITALS: BP 100/72; PULSE 97; RESP 19; TEMP 36.16956; O2SAT 98
[2024-06-23 16:00] VITALS: BP 96/49; PULSE 104; RESP 19; TEMP 36.50292; O2SAT 98
[2024-06-23 20:00] VITALS: BP 105/75; PULSE 95; RESP 18; TEMP 36.9474; O2SAT 97
[2024-06-24] VITALS: BP 105/74; PULSE 103; RESP 20; TEMP 36.78072; O2SAT 96
[2024-06-24 04:00] VITALS: BP 90/55; PULSE 86; RESP 17; TEMP 36.61404; O2SAT 95
[2024-06-24 08:00] VITALS: BP 90/56; PULSE 94; RESP 19; TEMP 36.44736; O2SAT 95
[2024-06-24 08:56] LABS: BASOPHILS % 0.3 % (0.0-2.0); EOSINOPHILS % 1.9 % (0.0-5.0); HEMATOCRIT. 32.7 % (36.0-48.0); HEMOGLOBIN. 10.9 g/dL (12.0-16.0); MEAN CORPUSCULAR HGB CONC 33.3 g/dL (31.0-37.0); MEAN CORPUSCULAR VOLUME 81.2 fL (81.0-99.0); MEAN PLATELET VOLUME 7.7 fl (7.4-10.4); MONOCYTES % 6.5 % (2.0-8.0); NEUTROPHILS % 75.3 % (40.0-76.0); PLATELET 440 x1000/uL (130-400); RED BLOOD CELL COUNT 4.03 mill/uL (4.2-5.4); RED CELL DISTRIBUTION WIDTH 16.9 % (11.6-14.6); WHITE BLOOD COUNT 9.5 x1000/uL (4.5-11.0)
[2024-06-24 08:58] LABS: CHLORIDE 105 mEq/L (98-107); POTASSIUM 3.7 mEq/L (3.5-5.1); SODIUM 138 mEq/L (136-145)
[2024-06-24 08:59] LABS: CARBON DIOXIDE 27 mEq/L (21-32)
[2024-06-24 09:00] LABS: CALCIUM 9.4 mg/dL (8.7-10.4)
[2024-06-24 09:04] LABS: CREATININE 0.2 mg/dL (0.6-1.0); GLUCOSE 98 mg/dL (70-105); UREA NITROGEN BLOOD 11 mg/dL (9-23)
[2024-06-24 12:00] VITALS: BP 106/66; PULSE 113; RESP 18; TEMP 36.44736; O2SAT 98
[2024-06-24] MEDS ORDERED: DOCUSATE SODIUM 100MG CAPSULE PO PRN (12:00)
[2024-06-24] MEDS: DOCUSATE SODIUM 100MG CAPSULE PO PRN (12:10)
[2024-06-24 16:00] VITALS: BP 109/69; PULSE 131; RESP 18; TEMP 36.44736; O2SAT 96
[2024-06-24 20:00] VITALS: BP 108/74; PULSE 113; RESP 20; TEMP 36.6696; O2SAT 98
[2024-06-24] MEDS: FAMOTIDINE 20MG TABLET PO SCH (21:19)
[2024-06-25] VITALS: BP 116/71; PULSE 109; RESP 18; TEMP 37.16964; O2SAT 98
[2024-06-25 04:00] VITALS: BP 98/66; PULSE 88; RESP 20; TEMP 36.61404; O2SAT 98
[2024-06-25 08:00] VITALS: BP 100/65; PULSE 93; RESP 18; TEMP 37.11408; O2SAT 100
[2024-06-25 12:00] VITALS: BP 98/62; PULSE 86; RESP 18; TEMP 36.114; O2SAT 100
[2024-06-25 16:00] VITALS: BP 92/53; PULSE 101; RESP 20; TEMP 35.5584; O2SAT 100
[2024-06-25 20:00] VITALS: BP 105/70; PULSE 99; RESP 18; TEMP 36.50292; O2SAT 95
[2024-06-26] VITALS: BP 99/68; PULSE 94; RESP 18; TEMP 36.89184; O2SAT 97
[2024-06-26 04:00] VITALS: BP 87/52; PULSE 92; RESP 18; TEMP 36.50292; O2SAT 99
[2024-06-26 08:00] VITALS: BP 94/59; PULSE 89; RESP 18; TEMP 36.33624; O2SAT 98
[2024-06-26 09:46] LABS: INR 1.1; PROTHROMBIN TIME 12.2 sec (9.6-11.0)
[2024-06-26 09:48] LABS: LACTATE DEHYDROGENASE 136 IU/L (120-246)
[2024-06-26] MEDS ORDERED: SODIUM BICARBONATE 4% 2.4MEQ/5ML VIAL IV ONE (11:06)
[2024-06-26 12:00] VITALS: BP 114/72; PULSE 99; RESP 18; TEMP 36.33624; O2SAT 98
[2024-06-26 15:10] LABS: SODIUM URINE RANDOM 48 mEq/L
[2024-06-26 16:00] VITALS: BP 100/60; PULSE 99; RESP 18; TEMP 36.89184; O2SAT 97
[2024-06-26 16:20] LABS: OSMOLALITY URINE 271 mOsm/kg (500-850)
[2024-06-26 20:00] VITALS: BP 106/65; PULSE 106; RESP 18; TEMP 36.55848; O2SAT 85
[2024-06-27] VITALS: BP 99/61; PULSE 103; RESP 18; TEMP 36.83628; O2SAT 93
[2024-06-27 00:51] LABS: CHLORIDE 105 mEq/L (98-107); POTASSIUM 3.6 mEq/L (3.5-5.1); SODIUM 136 mEq/L (136-145)
[2024-06-27 00:52] LABS: CARBON DIOXIDE 25 mEq/L (21-32)
[2024-06-27 00:53] LABS: CALCIUM 9.4 mg/dL (8.7-10.4)
[2024-06-27 00:57] LABS: GLUCOSE 95 mg/dL (70-105); UREA NITROGEN BLOOD 12 mg/dL (9-23)
[2024-06-27 01:03] LABS: CREATININE 0.3 mg/dL (0.6-1.0)
[2024-06-27] MEDS ORDERED: LIDOCAINE HCL 1% 10 MG/ML 10ML VIAL ONE (07:55)
[2024-06-27 12:00] VITALS: BP 109/75; PULSE 83; RESP 20; TEMP 36.50292; O2SAT 100
[2024-06-27 16:00] VITALS: BP 101/69; PULSE 80; RESP 19; TEMP 36.55848; O2SAT 97
[2024-06-27] MEDS: TAMSULOSIN HCL 0.4MG SR CAPSULE PO SCH (16:52)
[2024-06-27 20:00] VITALS: BP 105/64; PULSE 110; RESP 18; TEMP 36.55848; O2SAT 98
[2024-06-28] VITALS: BP 96/61; PULSE 108; RESP 16; TEMP 36.28068; O2SAT 96
[2024-06-28 04:00] VITALS: BP 99/61; PULSE 102; RESP 16; TEMP 36.50292; O2SAT 98
[2024-06-28 08:00] VITALS: BP 98/60; PULSE 96; RESP 18; TEMP 36.6696; O2SAT 97
[2024-06-28 11:36] LABS: CHLORIDE 106 mEq/L (98-107); POTASSIUM 3.5 mEq/L (3.5-5.1); SODIUM 139 mEq/L (136-145)
[2024-06-28 11:37] LABS: CALCIUM 8.9 mg/dL (8.7-10.4); CARBON DIOXIDE 25 mEq/L (21-32)
[2024-06-28 11:42] LABS: GLUCOSE 76 mg/dL (70-105); UREA NITROGEN BLOOD 10 mg/dL (9-23)
[2024-06-28 11:47] LABS: BASOPHILS % 0.5 % (0.0-2.0); EOSINOPHILS % 3.4 % (0.0-5.0); HEMATOCRIT. 30.8 % (36.0-48.0); HEMOGLOBIN. 10.1 g/dL (12.0-16.0); LYMPHOCYTES % 20.7 % (20.0-50.0); MEAN CORPUSCULAR HEMOGLOBIN 26.6 pg (28.0-32.0); MEAN CORPUSCULAR HGB CONC 32.8 g/dL (31.0-37.0); MEAN CORPUSCULAR VOLUME 81.2 fL (81.0-99.0); MEAN PLATELET VOLUME 7.6 fl (7.4-10.4); NEUTROPHILS % 69.4 % (40.0-76.0); PLATELET 373 x1000/uL (130-400); RED CELL DISTRIBUTION WIDTH 16.6 % (11.6-14.6); WHITE BLOOD COUNT 8.9 x1000/uL (4.5-11.0)
[2024-06-28 11:50] LABS: CREATININE 0.2 mg/dL (0.6-1.0)
[2024-06-28 12:00] VITALS: BP 99/59; PULSE 111; RESP 18; TEMP 36.72516; O2SAT 97
[2024-06-28 16:00] VITALS: BP 97/58; PULSE 103; RESP 18; TEMP 36.78072; O2SAT 98
[2024-06-28 20:00] VITALS: BP 103/58; PULSE 112; RESP 18; TEMP 36.3918; O2SAT 95
[2024-06-29] VITALS: BP 93/61; PULSE 105; RESP 18; TEMP 36.78072; O2SAT 95
[2024-06-29 12:00] VITALS: BP 93/53; PULSE 85; RESP 18; TEMP 36.50292; O2SAT 97
[2024-06-29 16:00] VITALS: BP 94/53; PULSE 98; RESP 19; TEMP 36.50292; O2SAT 97
[2024-06-29 20:00] VITALS: BP 94/54; PULSE 70; RESP 18; TEMP 37.00296; O2SAT 96
[2024-06-29] MEDS: ONDANSETRON HCL 4MG/2ML INJ IV PRN (21:48)
[2024-06-29] MEDS: SENNOSIDES/DOCUSATE SOD 8.6/50MG TABLET PO PRN (22:08)
[2024-06-30] VITALS: BP 116/85; PULSE 115; RESP 16; TEMP 36.61404; O2SAT 96
[2024-06-30 04:00] VITALS: BP 104/64; PULSE 99; RESP 18; TEMP 37.00296; O2SAT 98
[2024-06-30 08:00] VITALS: BP_SYST 89; BP_SYST 94; BP_DIAS 54; BP_DIAS 58; PULSE 70; PULSE 85; RESP 18; RESP 19; TEMP 36.55848; TEMP 37.00296; O2SAT 96; O2SAT 97
[2024-06-30 12:00] VITALS: BP_SYST 102; BP_SYST 92; BP_DIAS 62; BP_DIAS 67; PULSE 85; PULSE 89; RESP 19; TEMP 36.33624; TEMP 36.6696; O2SAT 100; O2SAT 97
[2024-06-30 16:00] VITALS: BP 110/72; PULSE 89; RESP 19; TEMP 36.72516; O2SAT 100
[2024-06-30 20:00] VITALS: BP 100/63; PULSE 109; RESP 18; TEMP 36.78072; O2SAT 94
[2024-06-30] MEDS: LACTULOSE 20G/30ML UDC PO PRN (23:09)
[2024-07-01] VITALS: BP 107/69; PULSE 92; RESP 18; TEMP 36.78072; O2SAT 95
[2024-07-01 04:00] VITALS: BP 107/72; PULSE 87; RESP 16; TEMP 36.22512; O2SAT 95
[2024-07-01 08:00] VITALS: BP 110/70; PULSE 87; RESP 16; TEMP 36.6696; O2SAT 95
[2024-07-01] MEDS: POVIDONE-IODINE 10% TOPICAL SOLN 240ML TOP NR (09:30)
[2024-07-01 12:00] VITALS: BP 104/67; PULSE 103; RESP 18; TEMP 36.89184; O2SAT 97
[2024-07-01 16:00] VITALS: BP 104/67; PULSE 103; RESP 18; TEMP 36.89184; O2SAT 97
[2024-07-01 20:00] VITALS: BP 103/64; PULSE 115; RESP 20; TEMP 36.05844; O2SAT 99
[2024-07-01] MEDS ORDERED: LEVETIRACETAM 500MG/5ML CUP PO SCH (21:00)
[2024-07-01] MEDS: DESMOPRESSIN ACETATE 0.1MG TABLET PO SCH (21:00)
[2024-07-01] MEDS: ACETAMINOPHEN 325MG TABLET PO PRN (21:43)
[2024-07-01] MEDS: LEVETIRACETAM 500MG TABLET PO SCH (21:43)
[2024-07-02 00:41] VITALS: BP 124/50; PULSE 104; RESP 18; TEMP 36.89184; O2SAT 97
[2024-07-02 04:14] VITALS: BP 102/61; PULSE 109; RESP 19; TEMP 37.11408; O2SAT 97
[2024-07-02 08:00] VITALS: BP 95/56; PULSE 95; RESP 18; TEMP 36.3918; O2SAT 97
[2024-07-02] MEDS ORDERED: ONDANSETRON HCL 4MG/2ML INJ IV PRN (08:15)
[2024-07-02 12:00] VITALS: BP 94/60; PULSE 90; RESP 18; TEMP 36.50292; O2SAT 98
[2024-07-02 16:00] VITALS: BP 98/69; PULSE 94; RESP 20; TEMP 36.9474; O2SAT 99
[2024-07-02] MEDS: MONTELUKAST SODIUM 10MG TABLET PO SCH (18:05)
[2024-07-02 20:00] VITALS: BP 99/65; PULSE 94; RESP 20; TEMP 37.33632; O2SAT 97
[2024-07-03] VITALS: BP 92/64; PULSE 83; RESP 20; TEMP 36.61404; O2SAT 95
[2024-07-03 04:00] VITALS: BP 94/62; PULSE 80; RESP 19; TEMP 36.6696; O2SAT 96
[2024-07-03 08:00] VITALS: BP 102/66; PULSE 84; RESP 18; TEMP 36.72516; O2SAT 99
[2024-07-03 12:00] VITALS: BP 90/54; PULSE 101; RESP 18; TEMP 36.72516; O2SAT 98
[2024-07-03 16:00] VITALS: BP 101/69; PULSE 84; RESP 18; TEMP 36.72516; O2SAT 97
[2024-07-03 20:00] VITALS: BP 94/60; PULSE 104; RESP 20; TEMP 36.50292; O2SAT 94
[2024-07-04] VITALS: BP 94/61; PULSE 99; RESP 20; TEMP 36.55848; O2SAT 99
[2024-07-04 04:00] VITALS: BP 101/73; PULSE 96; RESP 20; TEMP 36.50292; O2SAT 95
[2024-07-04 08:09] VITALS: BP 101/71; PULSE 101; RESP 18; TEMP 36.6696; O2SAT 100
[2024-07-04 12:00] VITALS: BP 101/63; PULSE 103; RESP 18; TEMP 36.6696; O2SAT 97
[2024-07-04 16:00] VITALS: BP 90/61; PULSE 119; RESP 18; TEMP 36.114; O2SAT 100
[2024-07-04 20:00] VITALS: BP 98/59; PULSE 110; RESP 18; TEMP 36.55848; O2SAT 95
[2024-07-04] MEDS: DIPHENHYDRAMINE 50MG/ML VIAL IV NR (21:24)
[2024-07-05] VITALS (7 sets, daily range): BP systolic 92–107; BP diastolic 54–67; PULSE 89–106; RESP 18–20; TEMP 36.44736–37.05852; O2SAT 95–99
[2024-07-05 11:54] LABS: BASOPHILS % 0.6 % (0.0-2.0); DIFFERENTIAL COMMENT 0; EOSINOPHILS % 2.8 % (0.0-5.0); HEMATOCRIT. 31.8 % (36.0-48.0); HEMOGLOBIN. 10.4 g/dL (12.0-16.0); LYMPHOCYTES % 20.1 % (20.0-50.0); MEAN CORPUSCULAR HEMOGLOBIN 25.9 pg (28.0-32.0); MEAN CORPUSCULAR HGB CONC 32.8 g/dL (31.0-37.0); MEAN CORPUSCULAR VOLUME 78.9 fL (81.0-99.0); MEAN PLATELET VOLUME 7.5 fl (7.4-10.4); MONOCYTES % 7.6 % (2.0-8.0); NEUTROPHILS % 68.9 % (40.0-76.0); PLATELET 394 x1000/uL (130-400); RED BLOOD CELL COUNT 4.03 mill/uL (4.2-5.4); RED CELL DISTRIBUTION WIDTH 16.6 % (11.6-14.6); WHITE BLOOD COUNT 9.1 x1000/uL (4.5-11.0)
[2024-07-05 12:07] LABS: CARBON DIOXIDE 27 mEq/L (21-32); CHLORIDE 104 mEq/L (98-107); POTASSIUM 3.4 mEq/L (3.5-5.1); SODIUM 139 mEq/L (136-145)
[2024-07-05 12:08] LABS: CALCIUM 9.3 mg/dL (8.7-10.4)
[2024-07-05 12:13] LABS: CREATININE 0.2 mg/dL (0.6-1.0); GLUCOSE 93 mg/dL (70-105); UREA NITROGEN BLOOD 13 mg/dL (9-23)
[2024-07-06] VITALS: BP 110/68; PULSE 114; RESP 20; TEMP 36.22512; O2SAT 98
[2024-07-06 04:00] VITALS: BP 101/67; PULSE 100; RESP 19; TEMP 36.44736; O2SAT 98
[2024-07-06 08:00] VITALS: BP 97/63; PULSE 105; RESP 18; TEMP 36.16956; O2SAT 100
[2024-07-06 12:00] VITALS: BP 106/64; PULSE 108; RESP 18; TEMP 36.55848; O2SAT 100
[2024-07-06 16:00] VITALS: BP 106/65; PULSE 77; RESP 20; TEMP 36.55848; O2SAT 100
[2024-07-06 20:00] VITALS: BP 96/55; PULSE 122; RESP 18; TEMP 36.28068; O2SAT 100
[2024-07-07] VITALS: BP 107/64; PULSE 110; RESP 19; TEMP 36.78072; O2SAT 97
[2024-07-07 04:00] VITALS: BP 101/55; PULSE 94; RESP 19; TEMP 36.78072; O2SAT 99
[2024-07-07 08:00] VITALS: BP 92/60; PULSE 75; RESP 16; TEMP 36.114; O2SAT 100
[2024-07-07 12:00] VITALS: BP 98/61; PULSE 94; RESP 20; TEMP 36.16956; O2SAT 98
[2024-07-07 16:00] VITALS: BP 98/62; PULSE 103; RESP 20; TEMP 36.22512; O2SAT 98
[2024-07-07 20:00] VITALS: BP 105/67; PULSE 98; RESP 18; TEMP 36.78072; O2SAT 97
[2024-07-08] VITALS (7 sets, daily range): BP systolic 94–109; BP diastolic 58–79; PULSE 80–116; RESP 18–20; TEMP 35.5584–36.6696; O2SAT 96–100
[2024-07-09 04:00] VITALS: BP 99/66; PULSE 20; RESP 20; TEMP 36.28068; O2SAT 99
[2024-07-09 08:00] VITALS: BP 94/64; PULSE 96; RESP 19; TEMP 36.61404; O2SAT 97
[2024-07-09] MEDS: ENOXAPARIN 40MG/0.4ML SYR SUBCUT SCH (10:30)
[2024-07-09 11:15] LABS: CARBON DIOXIDE 28 mEq/L (21-32); CHLORIDE 103 mEq/L (98-107); POTASSIUM 3.5 mEq/L (3.5-5.1); SODIUM 137 mEq/L (136-145)
[2024-07-09 11:16] LABS: CALCIUM 9.1 mg/dL (8.7-10.4)
[2024-07-09 11:20] LABS: CREATININE 0.2 mg/dL (0.6-1.0)
[2024-07-09 11:21] LABS: GLUCOSE 86 mg/dL (70-105); UREA NITROGEN BLOOD 11 mg/dL (9-23)
[2024-07-09 12:00] VITALS: BP 93/62; PULSE 100; RESP 18; TEMP 36.61404; O2SAT 96
[2024-07-09 16:00] VITALS: BP 95/64; PULSE 92; RESP 18; TEMP 36.78072; O2SAT 97
[2024-07-09 20:00] VITALS: BP 112/70; PULSE 78; RESP 18; TEMP 36.33624; O2SAT 96
[2024-07-10] VITALS: BP 96/60; PULSE 100; RESP 18; TEMP 36.28068; O2SAT 96
[2024-07-10 08:00] VITALS: BP 97/62; PULSE 90; RESP 17; TEMP 36.114; O2SAT 96
[2024-07-10 12:00] VITALS: BP 91/57; PULSE 101; RESP 18; TEMP 36.44736; O2SAT 100
[2024-07-10 16:00] VITALS: BP 89/68; PULSE 110; RESP 18; TEMP 36.6696; O2SAT 100
[2024-07-10 20:00] VITALS: BP 98/63; PULSE 116; RESP 20; TEMP 36.22512; O2SAT 95
[2024-07-11] VITALS: BP 99/65; PULSE 105; RESP 20; TEMP 36.22512
[2024-07-11 04:00] VITALS: BP 90/58; PULSE 98; RESP 18; TEMP 36.28068; O2SAT 100
[2024-07-11 08:00] VITALS: BP 92/58; PULSE 105; RESP 20; TEMP 36.33624; O2SAT 100
[2024-07-11 12:00] VITALS: BP 99/68; PULSE 105; RESP 20; TEMP 36.33624; O2SAT 97
[2024-07-11] MEDS ORDERED: NON FORMULARY MED XX SCH (13:15)
[2024-07-11 16:00] VITALS: BP 105/60; PULSE 107; RESP 20; TEMP 36.44736; O2SAT 97
[2024-07-11 20:00] VITALS: BP 107/63; PULSE 125; RESP 18; TEMP 36.22512; O2SAT 95
[2024-07-11] MEDS ORDERED: SODIUM CHLORIDE 0.9% 500 ML IV NR (21:15)
[2024-07-11] MEDS: MELATONIN 3MG TABLET PO SCH (21:25)
[2024-07-12] VITALS: BP 111/54; PULSE 75; RESP 18; TEMP 36.28068; O2SAT 100
[2024-07-12 04:00] VITALS: BP 94/63; PULSE 95; RESP 18; TEMP 36.05844; O2SAT 95
[2024-07-12 08:00] VITALS: BP 109/76; PULSE 114; RESP 18; TEMP 36.50292; O2SAT 100
[2024-07-12 12:00] VITALS: BP 93/63; PULSE 97; RESP 20; TEMP 36.55848; O2SAT 97
[2024-07-12 16:00] VITALS: BP 119/75; PULSE 87; RESP 16; TEMP 36.44736; O2SAT 98
[2024-07-12 20:00] VITALS: BP 102/62; PULSE 109; RESP 20; TEMP 36.114; O2SAT 95
[2024-07-13] VITALS: BP 91/61; PULSE 101; RESP 18; TEMP 36.114; O2SAT 95
[2024-07-13 04:00] VITALS: BP 104/39; PULSE 113; RESP 18; TEMP 36.22512; O2SAT 95
[2024-07-13 08:00] VITALS: RESP 16
[2024-07-13 12:00] VITALS: BP 92/57; PULSE 97; RESP 18; TEMP 36.61404; O2SAT 95
[2024-07-13 16:00] VITALS: BP 101/61; PULSE 109; RESP 18; TEMP 36.28068; O2SAT 96
[2024-07-13 20:00] VITALS: BP 99/64; PULSE 123; RESP 18; TEMP 36.78072; O2SAT 98
[2024-07-14] VITALS: BP 93/62; PULSE 95; RESP 17; TEMP 36.55848; O2SAT 100
[2024-07-14 04:00] VITALS: BP 89/55; PULSE 89; RESP 17; TEMP 36.50292; O2SAT 100
[2024-07-14 08:00] VITALS: BP 91/57; PULSE 88; RESP 18; TEMP 36.00288; O2SAT 100
[2024-07-14 12:00] VITALS: BP 91/57; PULSE 101; RESP 18; TEMP 36.61404; O2SAT 100
[2024-07-14 16:00] VITALS: BP 86/55; PULSE 60; RESP 18; TEMP 36.72516; O2SAT 99
[2024-07-14 20:00] VITALS: BP 91/55; PULSE 108; RESP 19; TEMP 36.72516; O2SAT 97
[2024-07-15] VITALS: BP 87/57; PULSE 96; RESP 16; TEMP 37.00296; O2SAT 98
[2024-07-15 04:00] VITALS: BP 98/60; PULSE 89; RESP 18; TEMP 36.55848; O2SAT 89
[2024-07-15 08:00] VITALS: BP 101/64; PULSE 94; RESP 20; TEMP 36.114; O2SAT 100
[2024-07-15 12:00] VITALS: BP 112/69; PULSE 108; RESP 20; TEMP 36.44736; O2SAT 100
[2024-07-15 16:00] VITALS: BP 94/56; PULSE 111; RESP 18; TEMP 36.55848; O2SAT 98
[2024-07-15 20:00] VITALS: BP 119/62; PULSE 111; RESP 20; TEMP 36.72516; O2SAT 98
[2024-07-15] MEDS: DIPHENHYDRAMINE 25MG CAPSULE PO PRN (22:45)
[2024-07-16] VITALS: BP 115/63; PULSE 101; RESP 19; TEMP 37.44744; O2SAT 98
[2024-07-16 08:00] VITALS: PULSE 89; RESP 19; TEMP 36.44736; O2SAT 99
[2024-07-16 12:00] VITALS: BP 140/80; PULSE 77; RESP 20; TEMP 36.3918; O2SAT 98
[2024-07-16 16:00] VITALS: BP 99/60; PULSE 19; RESP 19; TEMP 37.00296; O2SAT 99
[2024-07-16 20:00] VITALS: BP 97/59; PULSE 18; RESP 18; TEMP 36.78072; O2SAT 98
[2024-07-16] MEDS: GUAIFENESIN 600MG ER TABLET PO PRN (21:33)
[2024-07-17] VITALS: BP 97/65; PULSE 18; RESP 18; TEMP 37.2252; O2SAT 96
[2024-07-17 04:00] VITALS: BP 101/63; PULSE 18; RESP 18; TEMP 37.11408; O2SAT 96
[2024-07-17 08:00] VITALS: BP 104/66; PULSE 101; RESP 18; TEMP 37.00296; O2SAT 97
[2024-07-17 12:00] VITALS: BP 100/63; PULSE 103; RESP 19; TEMP 36.61404; O2SAT 96
[2024-07-17 16:00] VITALS: BP 108/65; PULSE 110; RESP 18; TEMP 36.6696; O2SAT 97
[2024-07-17 20:00] VITALS: BP 109/66; PULSE 109; RESP 18; TEMP 37.503; O2SAT 97
[2024-07-18] VITALS: BP 98/59; PULSE 110; RESP 18; TEMP 35.66952; O2SAT 96
[2024-07-18 04:00] VITALS: BP 109/64; PULSE 69; RESP 18; TEMP 36.3918; O2SAT 97
[2024-07-18 08:00] VITALS: BP 91/62; PULSE 103; RESP 19; TEMP 36.114; O2SAT 98
[2024-07-18 12:00] VITALS: BP 92/55; PULSE 104; RESP 20; TEMP 36.28068; O2SAT 97
[2024-07-18 16:00] VITALS: BP 93/59; PULSE 102; RESP 20; TEMP 36.33624; O2SAT 99
[2024-07-18 20:00] VITALS: BP 114/64; PULSE 108; RESP 18; TEMP 36.55848; O2SAT 95
[2024-07-19] VITALS: BP 117/72; PULSE 107; RESP 18; TEMP 36.22512; O2SAT 94
[2024-07-19 04:00] VITALS: BP 99/55; PULSE 87; RESP 18; TEMP 36.6696; O2SAT 96
[2024-07-19 08:00] VITALS: BP 99/57; PULSE 94; RESP 19; TEMP 36.6696; O2SAT 99
[2024-07-19 12:00] VITALS: BP 97/59; PULSE 88; RESP 19; TEMP 36.3918; O2SAT 99
[2024-07-19 16:00] VITALS: BP 98/61; PULSE 81; RESP 19; TEMP 36.55848; O2SAT 99
[2024-07-19 20:00] VITALS: BP 99/58; PULSE 109; RESP 18; TEMP 36.28068; O2SAT 100
[2024-07-19] MEDS: SODIUM CHLORIDE 0.9% 500 ML IV ONE (20:52)
[2024-07-20] VITALS: BP 91/67; PULSE 96; RESP 19; TEMP 36.28068; O2SAT 97
[2024-07-20 04:00] VITALS: BP 105/64; PULSE 94; RESP 19; TEMP 36.78072; O2SAT 98
[2024-07-20 08:00] VITALS: BP 110/70; PULSE 101; RESP 18; TEMP 36.28068; O2SAT 100
[2024-07-20 12:00] VITALS: BP 106/64; PULSE 115; RESP 20; TEMP 36.55848; O2SAT 96
[2024-07-20 16:00] VITALS: BP 101/62; PULSE 114; RESP 20; TEMP 36.61404; O2SAT 95
[2024-07-20 20:00] VITALS: BP 109/67; PULSE 120; RESP 18; TEMP 37.61412; O2SAT 96
[2024-07-21] VITALS: BP 100/64; PULSE 119; RESP 18; TEMP 36.83628; O2SAT 92
[2024-07-21 04:00] VITALS: BP 102/65; PULSE 120; RESP 18; TEMP 37.28076
[2024-07-21 08:00] VITALS: BP 103/59; PULSE 106; RESP 20; TEMP 36.114; O2SAT 98
[2024-07-21 12:00] VITALS: BP 104/63; PULSE 96; RESP 20; TEMP 36.22512; O2SAT 98
[2024-07-21 20:00] VITALS: BP 101/66; PULSE 112; RESP 19; TEMP 36.33624; O2SAT 95
[2024-07-22] VITALS: BP 103/72; PULSE 103; RESP 18; TEMP 36.3918; O2SAT 97
[2024-07-22 04:00] VITALS: BP 100/58; PULSE 113; RESP 18; TEMP 36.83628; O2SAT 99
[2024-07-22 08:00] VITALS: BP 96/60; PULSE 101; RESP 16; TEMP 36.00288; O2SAT 100
[2024-07-22 12:00] VITALS: BP 97/56; PULSE 114; RESP 18; TEMP 36.28068; O2SAT 97
[2024-07-22 16:00] VITALS: BP 102/67; PULSE 109; RESP 19; TEMP 36.00288; O2SAT 96
[2024-07-22 20:00] VITALS: BP 110/71; PULSE 117; RESP 20; TEMP 36.3918; O2SAT 97
[2024-07-23] VITALS: BP 104/63; PULSE 101; RESP 17; TEMP 36.55848; O2SAT 97
[2024-07-23 04:00] VITALS: BP 103/59; PULSE 103; RESP 20; TEMP 36.61404; O2SAT 99
[2024-07-23] MEDS: NA PHOS,M-B/NA PHOS,DI-BA ENEMA 118ML PR PRN (07:03)
[2024-07-23 08:00] VITALS: BP 98/64; PULSE 96; RESP 19; TEMP 36.16956; O2SAT 98
[2024-07-23 12:00] VITALS: BP 92/55; PULSE 94; RESP 19; TEMP 36.22512; O2SAT 97
[2024-07-23 16:00] VITALS: BP 106/55; PULSE 105; RESP 20; TEMP 37.00296; O2SAT 99
[2024-07-23 20:00] VITALS: BP 96/65; PULSE 76; RESP 18; TEMP 36.22512; O2SAT 99
[2024-07-24] VITALS: BP 94/51; PULSE 96; RESP 18; TEMP 36.22512; O2SAT 99
[2024-07-24 04:00] VITALS: BP 91/47; PULSE 91; RESP 19; TEMP 36.22512; O2SAT 99
[2024-07-24 08:00] VITALS: BP 98/62; PULSE 99; RESP 18; TEMP 36.3918; O2SAT 97
[2024-07-24 12:00] VITALS: BP 100/69; PULSE 70; RESP 19; TEMP 36.55848; O2SAT 100
[2024-07-24 16:00] VITALS: BP 90/58; PULSE 110; RESP 18; TEMP 36.44736; O2SAT 95
[2024-07-24 20:00] VITALS: BP 90/63; PULSE 103; RESP 19; TEMP 36.72516; O2SAT 97
[2024-07-24] MEDS: FAMOTIDINE 20MG TABLET PO NR (22:51)
[2024-07-24] MEDS: ONDANSETRON HCL 4MG TABLET PO NR (22:53)
[2024-07-25] VITALS (7 sets, daily range): BP systolic 90–115; BP diastolic 51–66; PULSE 70–111; RESP 18–20; TEMP 36.05844–36.55848; O2SAT 96–100
[2024-07-26 04:00] VITALS: BP 117/75; PULSE 96; RESP 20; TEMP 36.05844; O2SAT 99
[2024-07-26 08:00] VITALS: BP 92/62; PULSE 68; RESP 18; TEMP 36.61404; O2SAT 95
[2024-07-26 12:00] VITALS: BP 98/54; PULSE 102; RESP 18; TEMP 36.61404; O2SAT 95
[2024-07-26 15:52] VITALS: BP 117/61; PULSE 102; RESP 20; TEMP 36.61404; O2SAT 95
[2024-07-26 20:00] VITALS: BP 117/73; PULSE 111; RESP 17; TEMP 36.16956; O2SAT 95
[2024-07-27] VITALS: BP 108/66; PULSE 102; RESP 17; TEMP 36.114; O2SAT 94
[2024-07-27 08:00] VITALS: BP 108/57; PULSE 98; RESP 19; TEMP 37.00296; O2SAT 97
[2024-07-27 12:00] VITALS: BP 103/76; PULSE 108; RESP 17; TEMP 36.28068; O2SAT 96
[2024-07-27 16:00] VITALS: BP 98/64; PULSE 114; RESP 18; TEMP 37.39188; O2SAT 97
[2024-07-27 20:00] VITALS: BP 97/60; PULSE 105; RESP 19; TEMP 36.28068; O2SAT 95
[2024-07-28] VITALS: BP 114/78; PULSE 96; RESP 19; TEMP 36.22512; O2SAT 98
[2024-07-28 04:00] VITALS: BP 109/70; PULSE 96; RESP 18; TEMP 36.22512; O2SAT 97
[2024-07-28 08:00] VITALS: BP 97/60; PULSE 82; RESP 18; TEMP 36.50292; O2SAT 96
[2024-07-28 12:00] VITALS: BP 96/60; PULSE 99; RESP 18; TEMP 36.22512; O2SAT 98
[2024-07-28 16:00] VITALS: BP 100/67; PULSE 94; RESP 19; TEMP 36.22512; O2SAT 99
[2024-07-29] VITALS: BP 96/59; PULSE 94; RESP 19; TEMP 36.28068; O2SAT 97
[2024-07-29 04:00] VITALS: BP 97/61; PULSE 99; RESP 18; TEMP 36.28068; O2SAT 95
[2024-07-29 08:00] VITALS: BP 95/49; PULSE 89; RESP 18; TEMP 35.2806; O2SAT 95
[2024-07-29 12:00] VITALS: BP 120/79; PULSE 107; RESP 18; TEMP 36.28068; O2SAT 98
[2024-07-29 12:09] VITALS: BP 112/70; PULSE 89; TEMP 97.4; O2SAT 99
[2024-07-29 16:00] VITALS: BP 99/66; PULSE 102; RESP 18; TEMP 36.28068; O2SAT 97
== END 2024-07-29 17:20 | DRG 951 ==
LOC: ER 12:34 → 5WST 13:23 → EDBEDREQTM 13:25 → EDBEDREQ 13:25 → 8WST 06-03 08:31 → 6WST 06-08 17:32 → 4WST 07-23 13:55
PROVIDERS: ADMIT Hospitalist; ATTEND Hospitalist
PROC: 0W993ZZ Drainage of Right Pleural Cavity, Percutaneous Approach (ICD-10-PCS; 2024-06-03)
PROC: 0KBN0ZZ Excision of Right Hip Muscle, Open Approach (ICD-10-PCS; principal; 2024-06-05)
PROC: 0JBR0ZZ Excision of Left Foot Subcutaneous Tissue and Fascia, Open Approach (ICD-10-PCS; 2024-06-07)
PROC: 0W993ZZ Drainage of Right Pleural Cavity, Percutaneous Approach (ICD-10-PCS; 2024-06-17)
PROC: 0JBR0ZZ Excision of Left Foot Subcutaneous Tissue and Fascia, Open Approach (ICD-10-PCS; 2024-06-23)
PROC: 0W993ZZ Drainage of Right Pleural Cavity, Percutaneous Approach (ICD-10-PCS; 2024-06-26)
PROC: 0TP5X0Z Removal of Drainage Device from Kidney, External Approach (ICD-10-PCS; 2024-06-27)
PROC: 0JBR0ZZ Excision of Left Foot Subcutaneous Tissue and Fascia, Open Approach (ICD-10-PCS; 2024-07-08)
PROC: 0JBR0ZZ Excision of Left Foot Subcutaneous Tissue and Fascia, Open Approach (ICD-10-PCS; 2024-07-08)
PROC: 0JBR0ZZ Excision of Left Foot Subcutaneous Tissue and Fascia, Open Approach (ICD-10-PCS; 2024-07-18)
PROC: 0JBR0ZZ Excision of Left Foot Subcutaneous Tissue and Fascia, Open Approach (ICD-10-PCS; 2024-07-18)
PROC: 0JBR0ZZ Excision of Left Foot Subcutaneous Tissue and Fascia, Open Approach (ICD-10-PCS; 2024-07-28)
PROC: 0JBR0ZZ Excision of Left Foot Subcutaneous Tissue and Fascia, Open Approach (ICD-10-PCS; 2024-07-28)
DX: M94.0 Chondrocostal junction syndrome [Tietze] (principal); G82.50 Quadriplegia, unspecified; E23.2 Diabetes insipidus; L89.314 Pressure ulcer of right buttock, stage 4; M86.172 Other acute osteomyelitis, left ankle and foot; J91.8 Pleural effusion in other conditions classified elsewhere; N13.6 Pyonephrosis; Q05.4 Unspecified spina bifida with hydrocephalus; B95.2 Enterococcus as the cause of diseases classified elsewhere; Z16.21 Resistance to vancomycin; K59.09 Other constipation; N20.0 Calculus of kidney; L97.529 Non-pressure chronic ulcer of other part of left foot with unspecified severity; G40.909 Epilepsy, unspecified, not intractable, without status epilepticus; G43.909 Migraine, unspecified, not intractable, without status migrainosus; J45.909 Unspecified asthma, uncomplicated; S90.32XA Contusion of left foot, initial encounter; K21.9 Gastro-esophageal reflux disease without esophagitis; N73.9 Female pelvic inflammatory disease, unspecified; Z74.01 Bed confinement status; Z98.2 Presence of cerebrospinal fluid drainage device; Z79.4 Long term (current) use of insulin; Z87.440 Personal history of urinary (tract) infections; Z87.442 Personal history of urinary calculi; Z88.1 Allergy status to other antibiotic agents; Z93.6 Other artificial openings of urinary tract status; Z88.8 Allergy status to other drugs, medicaments and biological substances; X58.XXXA Exposure to other specified factors, initial encounter; Y93.89 Activity, other specified; Y92.89 Other specified places as the place of occurrence of the external cause; Y99.8 Other external cause status
CPT/HCPCS: 32555; 36415; 47537; 71045; 71250; 73630; 74018; 74176; 76604; 76700; 76770; 80048; 80076; 81003; 82040; 82962; 83605; 83615; 83880; 83935; 83986; 84134; 84145; 84300; 84484; 85025; 85027; 87070; 87077; 87186; 88108; 88312; 90686; 90732; 93005; 93306; 99291; A6261; J0696; J1650; J1956; J2405; J3490; J7030; Q0162; Q0163